=== PATIENT | female | born 1930 | race Caucasian/White ===

== ENCOUNTER 2016-07-08 12:15 | Inpatient (IN) | payer MEDICARE, OTHER ==
--- NOTE | 2016-07-08 13:19 | ED ---
Fall HPI - General Chief Complaint: Fall Stated Complaint: FALL Time Seen by Provider: 07/08/16 12:44 Source: patient, EMS, RN notes reviewed Mode of arrival: EMS - History of Present Illness Initial Comments: Patient is an 85-year-old female presents to the emergency room for evaluation of fall. Patient states this morning she was turning around to grab her hairbrush and lost her balance and fell on her left hip. Patient states that she crawled through her house to get the phone to call EMS. Patient states that she's having constant pain in her left hip. Patient states she feels like it is dislocated. Patient denies previous surgeries on her hip in the past or dislocations. Patient denies numbness or tingling in her toes. Patient denies head trauma, loss of consciousness, nausea, vomiting, neck pain. Patient denies any other injuries besides hip pain. - Related Data Home Medications Medication Instructions Recorded Confirmed Levothyroxine Sodium [Synthroid] 100 mcg PO DAILY 07/22/14 07/08/16 Naproxen Sodium [Aleve] 440 mg PO Q8H PRN 03/07/16 07/08/16 Allergies Allergy/AdvReac Type Severity Reaction Status Date / Time Anesthetics - Bianca Type- Allergy Itching Verified 07/08/16 15:21 Parabens [Anesthetics - Bianca Type] celecoxib [From Celebrex] Allergy Itching Verified 07/08/16 15:21 doxycycline Allergy Rash/Hives Verified 07/08/16 15:21 iron Allergy Itching Verified 07/08/16 15:21 losartan potassium Allergy Rash/Hives Verified 07/08/16 15:21 [From Hyzaar] meperidine HCl [From Demerol] Allergy Anaphylaxis Verified 07/08/16 15:21 metformin HCl Allergy Anaphylaxis Verified 07/08/16 15:21 [From Glucophage] Tetracyclines Allergy Rash/Hives Verified 07/08/16 15:21 Anesthetics - Amide Type AdvReac Rapid Verified 07/08/16 12:23 Heart Rate hydrochlorothiazide AdvReac Nausea & Verified 07/08/16 12:23 [From Hyzaar] Vomiting shellfish derived AdvReac Nausea Verified 07/08/16 12:23 modex AdvReac Nausea & Uncoded 07/08/16 12:23 Vomiting Review of Systems ROS Statement: Those systems with pertinent positive or pertinent negative responses have been documented in the HPI. ROS Other: All systems not noted in ROS Statement are negative. Past Medical History Past Medical History: Thyroid Disorder Additional Past Medical History / Comment(s): anemia, abnormal liver enzymes History of Any Multi-Drug Resistant Organisms: None Reported Past Surgical History: Tonsillectomy Additional Past Surgical History / Comment(s): rectal prolapse repair, breast implants Past Psychological History: No Psychological Hx Reported Smoking Status: Never smoker Past Alcohol Use History: None Reported Past Drug Use History: None Reported - Past Family History Father Family Medical History: Cancer Additional Family Medical History / Comment(s): STOMACH ULCERS AND CANCER Mother Family Medical History: Myocardial Infarction (PA) Additional Family Medical History / Comment(s): SEVERAL PA'S General Exam - General Exam Comments Initial Comments: Sitting in exam room in no acute distress. Limitations: physical limitation General appearance: alert, in no apparent distress Head exam: Present: atraumatic, normocephalic, normal inspection Eye exam: Present: normal appearance ENT exam: Present: normal exam Neck exam: Present: normal inspection Respiratory exam: Present: normal lung sounds bilaterally. Absent: respiratory distress Cardiovascular Exam: Present: regular rate, normal rhythm, normal heart sounds Extremities exam: Present: normal inspection Left Hip exam: Present: tenderness, internal rotation, shortening. Absent: full ROM Upper Leg exam: Present: normal inspection. Absent: tenderness Knee exam: Present: normal inspection. Absent: tenderness Neurovascular tendon exam: Present: no vascular compromise. Absent: pulse deficit (2+ dorsal pedal and posterior tibial pulses), abnormal cap refill ( Capillary refill less than 2 seconds) Gait: unable to bear weight Back exam: Present: normal inspection Neurological exam: Present: alert Psychiatric exam: Present: normal affect, normal mood Skin exam: Present: warm, dry, intact, normal color. Absent: rash Course Vital Signs 07/08/16 07/08/16 12:17 14:34 Temperature 97.0 F L 99.3 F Pulse Rate 92 85 Respiratory 17 18 Rate Blood Pressure 162/65 173/69 O2 Sat by Pulse 100 99 Oximetry Medical Decision Making - Medical Decision Making Patient is an 85-year-old female presents emergency room for evaluation of fall. Left hip x-ray: Subcapital fracture left hip. Patient declined pain medications when she first arrived. After x-rays, patient requested pain medications. Case discussed with Dr. Ivy. Dr. Ivy discussed case with Dr. Escobar who agreed to admit patient. Plan discussed with patient. - Lab Data Result diagrams: 07/08/16 14:10 07/08/16 14:10 Lab Results 07/08/16 07/08/16 07/08/16 Range/Units 12:35 14:10 14:10 WBC 14.7 H (3.8-10.6) k/uL RBC 2.49 L (3.80-5.40) m/uL Hgb 8.8 L (11.4-16.0) gm/dL Hct 27.1 L (34.0-46.0) % MCV 108.6 H (80.0-100.0) fL MCH 35.3 H (25.0-35.0) pg MCHC 32.6 (31.0-37.0) g/dL RDW 22.1 H (11.5-15.5) % Plt Count 386 (150-450) k/uL Neutrophils % (Manual) 89.5 % Band Neutrophils % 1.5 % Lymphocytes % (Manual) 6.0 % Monocytes % (Manual) 2.0 % Metamyelocytes % 0.5 % Myelocytes % 0.5 % Neutrophils # (Manual) 13.4 H (1.3-7.7) k/uL Lymphocytes # (Manual) 0.9 L (1.0-4.8) k/uL Monocytes # (Manual) 0.3 (0-1.0) k/uL Nucleated RBCs 0 (0-0) /100 WBC Toxic Granulation Present Dimorphic RBCs Present Poikilocytosis (manual Present Anisocytosis Moderate Macrocytosis Marked Target Cells Present PT (9.0-12.0) sec INR (<1.1) Sodium 143 (137-145) mmol/L Potassium 4.4 (3.5-5.1) mmol/L Chloride 105 (98-107) mmol/L Carbon Dioxide 26 (22-30) mmol/L Anion Gap 12 mmol/L BUN 23 H (7-17) mg/dL Creatinine 0.90 (0.52-1.04) mg/dL Est GFR (MDRD) Af Amer >60 (>60 ml/min/1.73 sqM) Est GFR (MDRD) Non-Af 60 (>60 ml/min/1.73 sqM) Glucose 101 H (74-99) mg/dL Calcium 9.6 (8.4-10.2) mg/dL Total Bilirubin 1.4 H (0.2-1.3) mg/dL AST 121 H (14-36) U/L ALT 99 H (9-52) U/L Alkaline Phosphatase 75 (38-126) U/L Total Protein 7.3 (6.3-8.2) g/dL Albumin 4.1 (3.5-5.0) g/dL Urine Color Yellow Urine Appearance Clear (Clear) Urine pH 7.0 (5.0-8.0) Ur Specific [place] 1.009 (1.001-1.035) Urine Protein 1+ H (Negative) Urine Glucose (UA) Negative (Negative) Urine Ketones Negative (Negative) Urine Blood Negative (Negative) Urine Nitrate Negative (Negative) Urine Bilirubin Negative (Negative) Urine Urobilinogen <2.0 (<2.0) mg/dL Ur Leukocyte Esterase Negative (Negative) Urine WBC 2 (0-5) /hpf Urine Mucus Rare H (None) /hpf 07/08/ Range/Units 14:10 WBC (3.8-10.6) k/uL RBC (3.80-5.40) m/uL Hgb (11.4-16.0) gm/dL Hct (34.0-46.0) % MCV (80.0-100.0) fL MCH (25.0-35.0) pg MCHC (31.0-37.0) g/dL RDW (11.5-15.5) % Plt Count (150-450) k/uL Neutrophils % (Manual) % Band Neutrophils % % Lymphocytes % (Manual) % Monocytes % (Manual) % Metamyelocytes % % Myelocytes % % Neutrophils # (Manual) (1.3-7.7) k/uL Lymphocytes # (Manual) (1.0-4.8) k/uL Monocytes # (Manual) (0-1.0) k/uL Nucleated RBCs (0-0) /100 WBC Toxic Granulation Dimorphic RBCs Poikilocytosis (manual Anisocytosis Macrocytosis Target Cells PT 11.3 (9.0-12.0) sec INR 1.1 (<1.1) Sodium (137-145) mmol/L Potassium (3.5-5.1) mmol/L Chloride (98-107) mmol/L Carbon Dioxide (22-30) mmol/L Anion Gap mmol/L BUN (7-17) mg/dL Creatinine (0.52-1.04) mg/dL Est GFR (MDRD) Af Amer (>60 ml/min/1.73 sqM) Est GFR (MDRD) Non-Af (>60 ml/min/1.73 sqM) Glucose (74-99) mg/dL Calcium (8.4-10.2) mg/dL Total Bilirubin (0.2-1.3) mg/dL AST (14-36) U/L ALT (9-52) U/L Alkaline Phosphatase (38-126) U/L Total Protein (6.3-8.2) g/dL Albumin (3.5-5.0) g/dL Urine Color Urine Appearance (Clear) Urine pH (5.0-8.0) Ur Specific [place] (1.001-1.035) Urine Protein (Negative) Urine Glucose (UA) (Negative) Urine Ketones (Negative) Urine Blood (Negative) Urine Nitrate (Negative) Urine Bilirubin (Negative) Urine Urobilinogen (<2.0) mg/dL Ur Leukocyte Esterase (Negative) Urine WBC (0-5) /hpf Urine Mucus (None) /hpf - Radiology Data Radiology results: report reviewed, image reviewed Disposition Clinical Impression: Subcapital fracture of hip Disposition: ADMITTED IP TO THIS [facility] Condition: Stable Decision Date: 07/08/16
--- NOTE | 2016-07-08 13:32 | XR ---
EXAMINATION TYPE: XR Hip Complete LT DATE OF EXAM: 07/08/2016 1:28 PM COMPARISON: Pelvis 04/15/2013 HISTORY: Pain, fall TECHNIQUE: 2 views left hip FINDINGS: There is a subcapital fracture. The femoral head articulates with the acetabulum. No additi onal fractures are evident. IMPRESSION: 1. Subcapital fracture left hip
[2016-07-08] MEDS ORDERED: MORPHINE SULFATE 2 MG/ML SYRINGE IVP ONE (14:04)
[2016-07-08] MEDS ORDERED: MORPHINE SULFATE 2 MG/ML SYRINGE IV PRN (14:17)
[2016-07-08] MEDS ORDERED: NALOXONE 0.4 MG/ML 1 ML VIAL IV PRN (14:17)
[2016-07-08 14:32] LABS: INR 1.1 (<1.1); Prothrombin Time 11.3 sec (9.0-12.0)
[2016-07-08 14:36] LABS: ALT 99 U/L (9-52); AST 121 U/L (14-36); Alkaline Phosphatase 75 U/L (38-126); Anion Gap 12 mmol/L; Blood Urea Nitrogen 23 mg/dL (7-17); Calcium 9.6 mg/dL (8.4-10.2); Carbon Dioxide 26 mmol/L (22-30); Chloride 105 mmol/L (98-107); Glucose 101 mg/dL (74-99); Non-African American GFR(MDRD) 60 (>60 ml/min/1.73 sqM); Potassium 4.4 mmol/L (3.5-5.1); Sodium 143 mmol/L (137-145); Total Bilirubin 1.4 mg/dL (0.2-1.3); Total Protein 7.3 g/dL (6.3-8.2)
[2016-07-08] MEDS ORDERED: MORPHINE SULFATE 4 MG/ML SYRINGE IVP STA (14:38)
[2016-07-08 14:42] LABS: Anisocytosis Moderate; CH 36.2; CHCM 33.4; HCT 27.1 % (34.0-46.0); HDW 2.93; HGB 8.8 gm/dL (11.4-16.0); MCH 35.3 pg (25.0-35.0); MCHC 32.6 g/dL (31.0-37.0); MCV 108.6 fL (80.0-100.0); Macrocytosis Marked; Mean Platelet Volume 7.8; RBC 2.49 m/uL (3.80-5.40); RDW 22.1 % (11.5-15.5); WBC 14.7 k/uL (3.8-10.6); WBC (Perox) 15.35
[2016-07-08] MEDS: SODIUM CHLORIDE 0.9% 1,000 ML IV SCH (14:53)
--- NOTE | 2016-07-08 14:55 | XR ---
EXAMINATION TYPE: XR chest 1V DATE OF EXAM: 07/08/2016 2:43 PM COMPARISON: 03/07/2016 INDICATION: Pain TECHNIQUE: Single frontal view of the chest is obtained. FINDINGS: The heart size is normal. The pulmonary vasculature is normal. The lungs are clear. IMPRESSION: 1. No acute pulmonary process.
[2016-07-08 15:04] LABS: Add Differential Manual Differential
[2016-07-08 15:09] LABS: Band Neutrophils % 1.5 %; Metamyelocytes % 0.5 %; Myelocytes % 0.5 %; Nucleated Red Blood Cells 0 /100 WBC (0-0); Total Cells Counted 200
[2016-07-08 15:10] LABS: Appearance,Urine Clear (Clear); Bilirubin,Urine Negative (Negative); Glucose,Urine (UA) Negative (Negative); Ketones,Urine Negative (Negative); Leukocyte Esterase,Urine Negative (Negative); Mucus,Urine Rare /hpf; Nitrite,Urine Negative (Negative); Particle Count 1087; Protein,Urine 1+ (Negative); Specific Gravity,Urine 1.009 (1.001-1.035); UA Billing (MACRO vs. MICRO) MICRO; Urobilinogen,Urine <2.0 mg/dL (<2.0); WBC,Urine 2 /hpf (0-5)
[2016-07-08 15:11] LABS: Target Cells Present; Toxic Granulation Present
[2016-07-08] MEDS: MORPHINE SULFATE 4 MG/ML SYRINGE IVP PRN (15:38)
[2016-07-08] MEDS: ONDANSETRON 4 MG/2 ML VIAL IVP PRN (16:23)
[2016-07-08] MEDS ORDERED: HYDROcodone/APAP 5-325MG 1 EACH TAB PO PRN (17:51)
--- NOTE | 2016-07-08 22:20 | PN ---
DATE OF SERVICE: 07/08/2016 Katrina is a very pleasant 85-year-old female who earlier today slipped on a floor in her house and fell onto her left hip. She had immediate left hip pain. She was brought via ambulance to [facility]'s emergency department. Workup including x-rays revealed a left displaced subcapital femoral neck fracture. I was then notified by the emergency department. She was admitted to me, and I saw her this evening on the floor. She was resting comfortably in bed when I saw her. She had no complaints of pain other than the left hip. She does state to me that she lives alone. She is an independent ambulator. She feels that she is quite active for her age. Medical history of hypertension and type 2 diabetes. PHYSICAL EXAMINATION: She is resting comfortably in no acute distress. Her T-max is 98.3. Blood pressure is elevated at 159/71. Her pulse rate is 83. She is saturating 100% on room air. LABORATORIES: Her white count is 14.7, hemoglobin 8.8, platelets 386. Her INR is 1.1. Her urinalysis is negative for urinary tract infection. PHYSICAL EXAMINATION: She has no pain with palpation and range of motion of all long bones and joints with the exception of the left hip. The left hip is flexed and externally rotated. Her skin on the outside of the left hip is intact. There is no evidence of bruising. She has minimal swelling in the thigh. She has no pain with palpation of the mid aspect and distal aspect of her femur. No pain with palpation around the knee. She has no pain distally in the tibia, fibula, foot or ankle. She has intact flexion and extension, inversion and eversion of the left ankle. She has intact flexion and extension of all of her toes. She has intact lateral, medial, plantar and first dorsal web space sensation in the left foot. She has a palpable posterior tibial pulse and brisk capillary refill in all digits. X-RAYS: View of the pelvis as well as an AP lateral view of the left hip show a displaced subcapital femoral neck fracture. IMPRESSION: Left subcapital femoral neck fracture. RECOMMENDATIONS: I had a long discussion with Katrina. She is an independent ambulator. Recommendation was to proceed forward with hemiarthroplasty of her left hip for definitive fixation of her left femoral neck fracture. The risks of the procedure were discussed with her in detail. These risks include but are not limited to risk of infection, nerve damage, bleeding, pain, and a small risk of deep vein thrombosis which could lead to fatal pulmonary embolism. Further risks that I discussed with here were the possibility for periprosthetic fracture and the possibility for postoperative instability in the hip. All of her questions with regards to the procedure were answered to her satisfaction and appropriate informed consent was obtained. We will have the medicine service see Katrina to definitively clear her for operative intervention. We will plan to proceed forward if she is cleared tomorrow morning for left hip hemiarthroplasty. Katrina will be n.p.o. after midnight tonight.
[2016-07-08] MEDS ORDERED: ALPRAZolam 0.25 MG TAB PO PRN (22:37)
[2016-07-08 23:38] LABS: Amorphous Sediment,Urine Rare /hpf; Appearance,Urine Clear (Clear); Bacteria,Urine Rare /hpf; Bilirubin,Urine Negative (Negative); Glucose,Urine (UA) Negative (Negative); Ketones,Urine Negative (Negative); Leukocyte Esterase,Urine Moderate (Negative); Nitrite,Urine Negative (Negative); Particle Count 1299; Protein,Urine Negative (Negative); RBC,Urine 2 /hpf (0-5); Specific Gravity,Urine 1.014 (1.001-1.035); UA Billing (MACRO vs. MICRO) MICRO; WBC,Urine 27 /hpf (0-5)
[2016-07-09] MEDS: MORPHINE SULFATE 4 MG/ML SYRINGE IVP PRN ×2 (03:41→06:40)
[2016-07-09 07:23] LABS: Anisocytosis Moderate; Basophils # (A) 0.1 k/uL (0-0.2); Basophils % (A) 1 %; CH 35.5; CHCM 32.3; Eosinophils # (A) 0.6 k/uL (0-0.7); Eosinophils % (A) 6 %; HCT 22.6 % (34.0-46.0); Hypochromasia Slight; Luc # (Auto) 0.39; Luc % (Auto) 4; Lymphocytes # (A) 2.7 k/uL (1.0-4.8); Lymphocytes % (A) 26 %; MCH 35.7 pg (25.0-35.0); MCHC 32.4 g/dL (31.0-37.0); MCV 110.2 fL (80.0-100.0); Macrocytosis Marked; Mean Platelet Volume 7.6; Monocytes # (A) 0.6 k/uL (0-1.0); Monocytes % (A) 6 %; Neutrophils % (A) 58 %; RBC 2.05 m/uL (3.80-5.40); RDW 22.6 % (11.5-15.5); WBC 10.4 k/uL (3.8-10.6); WBC (Perox) 10.96
[2016-07-09 07:28] LABS: HGB 7.3 gm/dL (11.4-16.0)
[2016-07-09 07:59] LABS: Total Bilirubin 1.1 mg/dL (0.2-1.3); Total Protein 6.3 g/dL (6.3-8.2)
[2016-07-09] MEDS ORDERED: ceFAZolin 2 GM in SODIUM CHLORIDE 0.9% 100 ML IVPB SCH (08:00)
[2016-07-09] MEDS ORDERED: PROPOFOL 10 MG/ML 20 ML VIAL IV ONE (09:51)
[2016-07-09] MEDS ORDERED: ceFAZolin 1,000 MG VIAL ONE (09:51)
[2016-07-09] MEDS ORDERED: SODIUM CHLORIDE 0.9% 1,000 ML BAG ONE (09:51)
[2016-07-09] MEDS ORDERED: SODIUM CHLORIDE 0.9% 100 ML BAG ONE (09:51)
[2016-07-09] MEDS ORDERED: IV FLUID CONTINUATION 300 ML IV ONE (09:51)
[2016-07-09] MEDS ORDERED: ROCURONIUM BROMIDE 10 MG/ML 10 ML VIAL IV ONE (09:51)
[2016-07-09] MEDS ORDERED: MIDAZOLAM 2 MG/2 ML VIAL ONE (09:51)
[2016-07-09] MEDS ORDERED: NEOSTIGMINE 1 MG/ML 10 ML VIAL ONE (09:51)
[2016-07-09] MEDS ORDERED: GLYCOPYRROLATE 0.2 MG/ML 2 ML VIAL ONE (09:51)
[2016-07-09] MEDS ORDERED: ePHEDrine 50 MG/ML 1 ML AMP ONE (09:51)
[2016-07-09] MEDS ORDERED: SUCCINYLCHOLINE CHLORIDE 100 MG/5 ML SYR IV ONE (09:51)
[2016-07-09] MEDS ORDERED: SODIUM CHLORIDE 0.9% 100 ML with ceFAZolin 2,000 MG IV ONE ×2 (09:56)
[2016-07-09] MEDS ORDERED: SODIUM CHLORIDE 0.9% 1,000 ML IV ONE (10:25)
[2016-07-09] MEDS ORDERED: ceFAZolin 1,000 MG in SODIUM CHLORIDE 0.9% 1,000 ML IRRIGATION ONE (10:33)
--- NOTE | 2016-07-09 11:13 | CONS ---
DATE OF CONSULTATION: 07/08/2016 REASON FOR CONSULTATION: Advice regarding hypothyroidism and other multiple medical issues requested by Dr. Escobar. HISTORY OF PRESENT ILLNESS: This 85-year-old woman with a past history of hypothyroidism, history of anemia, abnormal liver enzymes, rectal prolapse, being followed by no primary care physician in the outpatient setting apparently had twisted her leg and the patient subsequently suffered a left subcapital femoral neck fracture. Patient admitted for further evaluation and treatment. There is no history of any fever, rigors or chills. No history of any headache, loss of consciousness. No history of chest pain, palpitations. On admission, the patient was found to have hemoglobin of 8.8 and MCV 108.6. The patient had long-standing anemia. Multiple workups were done without any definitive results, according to her. Previous exercise capacity appears to be excellent. PAST MEDICAL HISTORY: History of anemia, long-standing; abnormal liver enzymes, hypothyroidism. Medications prior to admission include: 1. Naprosyn 40 mg q.8 p.r.n. 2. Synthroid 100 mcg p.o. daily. ALLERGIES ARE ANESTHETICS CELEBREX, DOXYCYCLINE, IRON, LOSARTAN, DEMEROL, METFORMIN, TETRACYCLINE, HYZAAR, SHELLFISH, FAMILY HISTORY: History of stomach cancer and ulcers. SOCIAL HISTORY: No history of smoking. No history of alcohol. REVIEW OF SYSTEMS: ENT: No diminished hearing, diminished vision. CARDIOVASCULAR: No angina, palpitations. RESPIRATORY: No cough GI: No nausea. : No dysuria. NERVOUS: No numbness or weakness. ALLERGY/IMMUNOLOGY: No asthma or hay fever. MUSCULOSKELETAL: As mentioned earlier. HEMATOLOGY/ONCOLOGY: As mentioned earlier. ENDOCRINE: No history of diabetes, hypothyroidism. CONSTITUTIONAL: As mentioned earlier. DERMATOLOGY: Negative. RHEUMATOLOGY: As mentioned earlier. PSYCHIATRY: Negative. PHYSICAL EXAM: Alert and oriented x3. Pulse 83, blood pressure 159/71, respirations 16, temperature 98.3, pulse ox 100% on room air. HEENT: Conjunctivae pale. Oral mucosa moist. NECK: No jugular venous distention. No carotid bruits. No lymph node enlargement. No thyroid enlargement. CARDIOVASCULAR: S1 and S2 muffled. No S3. No S4. No murmur. RESPIRATORY: Breath sounds diminished in the bases. No rhonchi. No crackles. Abdomen is soft, nontender. No mass palpable. No hepatosplenomegaly. No ascites. EXTREMITIES: Legs, status post left hip fracture. NERVOUS SYSTEM: Higher functions as mentioned. Moves all 4 limbs. No focal motor or sensory deficits. LYMPHATIC: No lymph nodes palpable in neck, axillae or groin. SKIN: No ulcers, rash or bleeding. Labs at this time show WBC 14.6, hemoglobin is 8.9, MCV 108. Other labs are noted. ASSESSMENT: 1. Status post left subcapital hip fracture. 2. Anemia, microcytic, possibly nutritional. 3. Increased WBC. 4. Increased total bilirubin. 5. Increased AST, ALT, mild hepatitis. 6. Increased glucose. 7. History of long-standing anemia. 8. History of rectal prolapse. 9. History of breast implants. 10. FULL CODE. RECOMMENDATIONS AND DISCUSSION: In this 85-year-old woman who presented with multiple complex medical issues, we will monitor the patient closely. Continue the current continue with the current medication. Continue with symptomatic treatment. Otherwise, at this time I recommend an EKG and if the EKG is normal, the patient will be cleared for surgery. The patient has anemia, which is long-standing. Will continue to monitor. Recommend to continue to monitor on a daily basis after surgery. If the hemoglobin is low, could be transfused. The patient is keen on taking any iron tablets at this time. Other than that, we will closely monitor the patient with you and repeat LFTs are also being requested. Avoid Tylenol products, continue with levothyroxine and follow the patient closely. The patient will be asked to follow with a primary physician also in the outpatient setting. Thank you, Dr. Escobar, for allowing us to participate in this patient's care. GEOFFREY
[2016-07-09] MEDS ORDERED: DIAZEPAM 5 MG TAB PO PRN (11:27)
[2016-07-09] MEDS ORDERED: HYDROcodone/APAP 7.5-325MG 1 EACH TAB PO PRN (11:27)
[2016-07-09] MEDS ORDERED: hydrOXYzine PAMOATE 25 MG CAP PO PRN (11:27)
[2016-07-09] MEDS ORDERED: NALOXONE 0.4 MG/ML 1 ML VIAL IV PRN (11:27)
[2016-07-09] MEDS ORDERED: HYDROmorphone 1 MG/ML 1 ML SYRINGE IVP PRN ×3 (11:27)
[2016-07-09] MEDS ORDERED: MAGNESIUM HYDROXIDE 2,400 MG/10 ML CUP PO PRN (11:27)
[2016-07-09] MEDS: MORPHINE SULFATE 4 MG/ML SYRINGE IVP ONE ×2 (11:47→11:52)
--- NOTE | 2016-07-09 12:28 | XR ---
EXAMINATION TYPE: XR Hip Limited LT DATE OF EXAM: 07/09/2016 11:52 AM CLINICAL HISTORY: Left hip fracture. TECHNIQUE: Single AP portable view of left hip is obtained immediately postoperatively. COMPARISON: Left hip x-ray from yesterday FINDINGS: Current exam is slightly suboptimal due to overlying hand. [place] osseous structures are so mewhat demineralized. Metallic hardware from total left hip arthroplasty is seen and appears satisfac tory in alignment and position. IMPRESSION: Metallic hardware from left hip arthroplasty is satisfactory in position.
[2016-07-09] MEDS: MULTIVITAMINS, THERA 1 EACH TAB PO SCH (12:37)
[2016-07-09] MEDS ORDERED: LEVOFLOXACIN 500MG-D5W PMX 500 MG in DEXTROSE/WATER 1 100ML.BAG IVPB SCH (13:00)
[2016-07-09] MEDS: ONDANSETRON 4 MG/2 ML VIAL IVP PRN (13:30)
[2016-07-09] MEDS: PANTOPRAZOLE 40 MG TABLET PO SCH (13:43)
[2016-07-09] MEDS: LEVOTHYROXINE 100 MCG TAB PO SCH (13:43)
[2016-07-09] MEDS: SODIUM CHLORIDE 0.9% 1,000 ML IV SCH ×2 (17:03→17:45)
[2016-07-09] MEDS ORDERED: WARFARIN 2.5 MG TAB PO ONE (18:00)
[2016-07-09] MEDS: ceFAZolin 2 GM in SODIUM CHLORIDE 0.9% 100 ML IVPB SCH (18:10)
--- NOTE | 2016-07-09 20:44 | PN ---
DATE OF SERVICE: 07/09/2016 This 85 -year-old woman who was admitted with hip fracture also underwent left hemiarthroplasty of the hip by Dr. Escobar. The patient also had anemia. Hemoglobin present on admission was 8.8. Currently 7.8. Patient being transfused two units, MCV is elevated at this time. The patient's creatinine 1.1 and the patient appears to be dehydrated. The patient is mildly confused. The patient being closely monitored at this time. PAST MEDICAL HISTORY: Reviewed. Review of systems could not be taken. The patient is slightly sedated. The current medications are reviewed and include: 1. [place] 5 mg q.4 p.r.n. and 7.5 mg. 2. Xanax 0.25 t.i.d. 3. Cefazolin 2 grams IV q.8. 4. Dilaudid. 5. Vistaril 25 mg q.4 p.r.n. 6. Levaquin 500 mg q.24h. 7. Synthroid 100 mcg p.o. daily. 8. Milk of Magnesia. 9. Melatonin 3 mg at bedtime. 10. Protonix. 11. Multivitamins. 12. Narcan. 13. Zofran. 14. Protonix. 15. Restoril. 16. Ultram. 17. Coumadin. PHYSICAL EXAMINATION: The patient is alert and oriented times 3. Pulse 84, blood pressure 125/50, respirations 20, temperature normal, pulse ox 93% on room air. HEENT: Conjunctivae normal. Oral mucosa moist. NECK: No jugular venous distention. No carotid bruit. No lymph node enlargement. CARDIOVASCULAR SYSTEM: S1, S2 muffled. RESPIRATORY: Diminished at the bases. A few scattered rhonchi. ABDOMEN: Soft. Nontender. Legs: Status post surgery. CENTRAL NERVOUS SYSTEM: No focal deficits. Labs at this time. WBC 10.8, hemoglobin 7.3, MCV 110.2, creatinine is 1.10. ASSESSMENT: 1. Left subcapital hip fracture, status post left hip hemiarthroplasty. 2. Anemia, microcytic, possibly nutritional, status post transfusion, present on admission and transfusion. 3. Increased WBC. 4. Increased total bilirubin and increased AST, ALT, mild hepatitis of undetermined etiology. 5. Increased glucose. 6. History of long-standing anemia with multiple work-ups. 7. History of rectal prolapse. 8. History of breast implants. 9. FULL CODE. RECOMMENDATIONS AND DISCUSSION: In this 84-year-old woman who presented with multiple complex medical issues, we will monitor the patient closely, continue the current medications. Continue symptomatic treatment. Continue with medications and monitor hemoglobin closely. Empiric antibiotics. Otherwise, supplement vitamins. DVT prophylaxis. Incentive spirometry. Further recommendations to follow. I would also recommend close follow-up in the outpatient setting. GEOFFREY
[2016-07-09] MEDS: MELATONIN 3 MG TABLET PO SCH (21:31)
[2016-07-09] MEDS: SENNOSIDES-DOCUSATE SODIUM 1 EACH TAB PO SCH (21:31)
[2016-07-10] MEDS: ceFAZolin 2 GM in SODIUM CHLORIDE 0.9% 100 ML IVPB SCH (00:09)
[2016-07-10] MEDS: SODIUM CHLORIDE 0.9% 1,000 ML IV SCH ×3 (00:11→15:40)
[2016-07-10] MEDS: HYDROcodone/APAP 7.5-325MG 1 EACH TAB PO PRN (05:50)
[2016-07-10] MEDS: LEVOTHYROXINE 100 MCG TAB PO SCH (05:51)
[2016-07-10 07:38] LABS: ALT 63 U/L (9-52); AST 70 U/L (14-36); Alkaline Phosphatase 47 U/L (38-126); Anion Gap 9 mmol/L; Blood Urea Nitrogen 19 mg/dL (7-17); Calcium 7.9 mg/dL (8.4-10.2); Carbon Dioxide 20 mmol/L (22-30); Chloride 106 mmol/L (98-107); Glucose 145 mg/dL (74-99); Non-African American GFR(MDRD) 60 (>60 ml/min/1.73 sqM); Potassium 4.7 mmol/L (3.5-5.1); Sodium 135 mmol/L (137-145); Total Bilirubin 1.1 mg/dL (0.2-1.3); Total Protein 5.5 g/dL (6.3-8.2)
[2016-07-10 08:17] LABS: Anisocytosis Moderate; Basophils # (A) 0.1 k/uL (0-0.2); Basophils % (A) 1 %; CH 33.6; CHCM 32.9; Eosinophils # (A) 0.4 k/uL (0-0.7); Eosinophils % (A) 4 %; HCT 24.8 % (34.0-46.0); HDW 3.05; HGB 8.3 gm/dL (11.4-16.0); Luc # (Auto) 0.29; Luc % (Auto) 2; Lymphocytes # (A) 1.5 k/uL (1.0-4.8); Lymphocytes % (A) 13 %; MCH 34.5 pg (25.0-35.0); MCHC 33.5 g/dL (31.0-37.0); Macrocytosis Marked; Monocytes # (A) 0.8 k/uL (0-1.0); Monocytes % (A) 6 %; Neutrophils # (A) 9.2 k/uL (1.3-7.7); Neutrophils % (A) 75 %; RDW 22.8 % (11.5-15.5); WBC 12.3 k/uL (3.8-10.6); WBC (Perox) 12.85
[2016-07-10 08:52] LABS: Manual Review Performed
[2016-07-10 08:53] LABS: Toxic Granulation Present
[2016-07-10] MEDS: PANTOPRAZOLE 40 MG TABLET PO SCH (10:12)
--- NOTE | 2016-07-10 10:54 | P.PN ---
Subjective Principal diagnosis: Left hip fracture Patient is postop day #1 from left hip hemiarthroplasty performed by Dr. Escobar for a left femoral neck fracture. She is seen at bedside this morning. She has expected postoperative pain at the left hip. She denies new complaints. She is denying numbness or tingling throughout the lower extremity. She denies calf pain. Review of systems is negative for fever, chills, chest pain, shortness of breath, nausea, vomiting, dizziness, headaches, slurred speech or other. Objective - Vital Signs Vital signs: Vital Signs Temp 98.2 F 07/10/16 08:00 Pulse 96 07/10/16 08:00 Resp 16 07/10/16 08:00 BP 129/60 07/10/16 08:00 Pulse Ox 91 L 07/10/16 08:00 Intake & Output 07/09/16 07/10/16 07/10/16 18:59 06:59 18:59 Intake Total 2081 1140 360 Output Total 575 400 Balance 1506 740 360 Intake: IV 1361 Sodium Chloride 0.9% 1, 60 000 ml @ 20 mls/hr IV . Q24H [facility] Rx#:[id number] Intake, IV Titration 300 Amount Sodium Chloride 0.9% 1, 300 000 ml @ 75 mls/hr IV . [id number] [facility] Rx#:[id number] Oral 100 840 360 Blood Product 620 Rc As-1 Unit 310 [id number] Rc As-1 Unit 310 [id number] Output: Urine 325 400 Estimated Blood Loss 250 Other: Voiding Method Indwelling Catheter Indwelling Catheter Indwelling Catheter - Exam Inspection of the left lower extremity shows a benign surgical wound. There is no active bleeding, dehiscence or drainage. Neurovascular status intact throughout the lower extremity. She has active plantar flexion and dorsiflexion. Sensation to light touch is intact throughout the lower extremity. Calf is soft and nontender. 2+ dorsalis pedis pulses and less than 2 second cap refill is present. - Constitutional General appearance: Present: no acute distress - Psychiatric Psychiatric: Present: A&O x's 3, appropriate affect, intact judgment & insight - Labs CBC & Chem 7: 07/10/16 06:45 07/10/16 06:45 Labs: Abnormal Lab Results - Last 24 Hours (Table) 07/10/16 07/10/16 Range/Units 06:45 06:45 WBC 12.3 H (3.8-10.6) k/uL RBC 2.40 L (3.80-5.40) m/uL Hgb 8.3 L (11.4-16.0) gm/dL Hct 24.8 L (34.0-46.0) % MCV 103.0 H D (80.0-100.0) fL RDW 22.8 H (11.5-15.5) % Neutrophils # 9.2 H (1.3-7.7) k/uL Sodium 135 L (137-145) mmol/L Carbon Dioxide 20 L (22-30) mmol/L BUN 19 H (7-17) mg/dL Glucose 145 H (74-99) mg/dL Calcium 7.9 L (8.4-10.2) mg/dL AST 70 H (14-36) U/L ALT 63 H (9-52) U/L Total Protein 5.5 L (6.3-8.2) g/dL Albumin 2.8 L (3.5-5.0) g/dL Microbiology - Last 24 Hours (Table) 07/08/16 23:21 Urine Culture - Preliminary Urine,Clean Catch Assessment and Plan (1) Subcapital fracture of hip Narrative/Plan: She will continue with routine postop orthopedic protocol including pain management, wound care, physical therapy, DVT prophylaxis and medical management. Expect that she'll transfer to an extended care facility in the next 1-2 days. Status: Acute Time with Patient: Less than 30
[2016-07-10] MEDS: MULTIVITAMINS, THERA 1 EACH TAB PO SCH (11:09)
[2016-07-10] MEDS: FOLIC ACID 1 MG TAB PO SCH (11:09)
[2016-07-10] MEDS: THIAMINE 100 MG TAB PO SCH (11:09)
--- NOTE | 2016-07-10 11:10 | OP ---
DATE OF SERVICE: SURGEON: ANTHONY PATRICK MD [employer]OM[employer] COACH: BRENDA WU. PREOPERATIVE DIAGNOSIS: Left displaced subcapital femoral neck fracture. POSTOPERATIVE DIAGNOSIS: Left displaced subcapital femoral neck fracture. OPERATION: Left hip hemiarthroplasty. ANESTHESIA: Spinal with sedation. ESTIMATED BLOOD LOSS: 250 mL. SPECIMENS REMOVED: COMPLICATIONS: None apparent. DRAINS: None. DISPOSITION: Postanesthesia care unit. OPERATIVE FINDINGS: INDICATIONS: Katrina is a very pleasant 85-year-old female who slipped yesterday in her house and fell on her left hip. She was brought via ambulance to [facility]. Work-up including x-rays revealed a left intracapsular femoral neck fracture. I was notified. She was admitted to my service. She was then evaluated by the medicine service on the floor. She was cleared for surgery. The risks of the procedure were discussed with her and her son in detail. These risks include, but are not limited to risk of infection, nerve damage, bleeding, pain, and a small risk of deep vein thrombosis, which could lead to fatal pulmonary embolism. Further risks include periprosthetic fracture, and a possibility for postoperative instability in the hip. All of her and her son's questions with regards to risks of the procedure were answered to their satisfaction and appropriate informed consent was obtained. DESCRIPTION OF THE PROCEDURE: The patient was identified in the preoperative holding area. Surgical site was marked by both patient and myself. She was given 2 grams of Ancef IV for prophylactic purposes. She was then transferred to the operative suite, where she was placed supine on the operating room table. General anesthetic was then administered and dosed by the anesthesia department without apparent complication. She was then placed into the right lateral decubitus position, well-padded in preparation for surgery. A well-padded axillary roll was also placed. Her legs were appropriately padded as well. The patient's left lower extremity was then prepped and draped in the usual sterile fashion. Standard surgical pause was then undertaken to ensure that we were operating on the correct site and that appropriate preoperative antibiotics had been given. All staff in the room were in agreement and we proceeded. The outlines of the greater trochanter and the proximal femur were marked with surgical pen. A planned 10 to 12 cm incision centered over the tip of the greater trochanter in line with the shaft of the femur was then marked with a surgical pen. Incision was then made with 10 blade scalpel. Dissection was carried down sharply to tensor fascia. The tensor fascia was then incised in line with the incision. This exposed the underlying trochanteric bursa. Trochanteric bursa was sharply excised. The [place]he between the anterior one third and the middle third of the gluteus medius and minimus was identified. I then utilizing electrocautery, the [place] between the anterior one third and middle two thirds was then incised. I then did a standard anterolateral approach to the hip. This was Hard[place] type approach. I then delivered the femoral neck out of the wound. I then utilized the guide and made a fresh femoral neck cut. This was done with reciprocating saw. The [place] femoral head was then removed with corkscrew. The acetabulum was then inspected. The cartilage was in good condition. There were no loose bodies noted within the acetabulum. I then placed a trial 45 head in the acetabulum. It had an excellent fit. The proximal femur was then delivered out of the wound. The box truck owner operator was used to enter the proximal femur. Starting reamer was then placed down the shaft of the femur. I then incrementally, reamed the proximal femur up to a 9 mm reamer, which is where I encountered good chatter. I then proceeded with broaching. I started with a size 7 broach and increased up to a size 9 broach. This had an excellent fit and fill of the proximal femur. The calcar reamer was then utilized. I then proceeded with trialing. I started with a -3 neck and a 45 head. The hip was carefully reduced. She was stable throughout a full range of motion. The legs were approximately equal. The leg lengths were approximately equal. There was minimal shuck. The hip was then redislocated. I made a decision to go forward with a 9 stem, -3 neck and 45 head. The wound was then thoroughly irrigated with sterile saline solution via pulse lavage. I had the food service sales representatives open a Biomet size 9 Bi-Metric collared hip stem, and -3 neck with a 45 monopolar head. The stem was then impacted in approximately 10 to 15 degrees of anteversion. The stem had excellent fit and was very stable. The -3 neck was then placed onto the 45 monopolar head. This was then tapped onto the [place] taper of the hip stem. The hip was then carefully reduced. Again it was stable throughout a full range of motion and there was minimal shuck and the leg lengths were approximately equal. At this point in time, I proceeded with closure. The wound was again thoroughly irrigated with sterile saline solution with antibiotic added. The hip capsule was closed with 0-Vicryl interrupted suture. The gluteus medius and minimus were repaired back to the greater trochanter utilizing #5 Ethibond transosseous suture. The raphe between the anterior one third and the middle two thirds of the gluteus medius was reapproximated with 0-Vicryl suture. The tensor fascia was then closed with running #2 Quill suture. The subcutaneous tissue was closed with 2-0 Vicryl interrupted suture and the skin was closed with running 3-0 Quill suture. Dermabond was then applied to the incision. The hip abductor pillow was also applied at this time. All sponge and needle counts were deemed correct prior to closure. The patient tolerated the procedure without apparent complication. She was transferred to recovery room in stable condition.
[2016-07-10] MEDS: LEVOFLOXACIN 250MG-D5W PMX 250 MG in DEXTROSE/WATER 1 50ML.BAG IVPB SCH (12:53)
[2016-07-10] MEDS: traMADol 50 MG TAB PO PRN (14:00)
[2016-07-10 14:29] LABS: INR 1.3 (<1.1); Prothrombin Time 12.5 sec (9.0-12.0)
[2016-07-10] MEDS: ONDANSETRON 4 MG/2 ML VIAL IVP PRN (16:21)
[2016-07-10] MEDS ORDERED: WARFARIN 5 MG TAB PO ONE (18:00)
[2016-07-10] MEDS: MELATONIN 3 MG TABLET PO SCH (21:32)
[2016-07-10] MEDS: SENNOSIDES-DOCUSATE SODIUM 1 EACH TAB PO SCH (21:32)
[2016-07-10] MEDS ORDERED: TEMAZEPAM 15 MG CAP PO PRN (22:00)
[2016-07-11] MEDS: ONDANSETRON 4 MG/2 ML VIAL IVP PRN (04:28)
[2016-07-11] MEDS: traMADol 50 MG TAB PO PRN (04:28)
[2016-07-11] MEDS: LEVOTHYROXINE 100 MCG TAB PO SCH (06:10)
[2016-07-11 07:45] LABS: INR 1.3 (<1.1); Prothrombin Time 12.9 sec (9.0-12.0)
[2016-07-11 07:55] LABS: Anisocytosis Moderate; Basophils # (A) 0.1 k/uL (0-0.2); Basophils % (A) 1 %; CH 33.3; CHCM 31.3; Eosinophils # (A) 0.1 k/uL (0-0.7); Eosinophils % (A) 1 %; HCT 23.8 % (34.0-46.0); HDW 2.73; HGB 7.6 gm/dL (11.4-16.0); Hypochromasia Slight; Luc # (Auto) 0.44; Luc % (Auto) 4; Lymphocytes # (A) 1.9 k/uL (1.0-4.8); Lymphocytes % (A) 17 %; MCH 34.3 pg (25.0-35.0); MCV 107.1 fL (80.0-100.0); Macrocytosis Marked; Mean Platelet Volume 8.1; Monocytes # (A) 0.7 k/uL (0-1.0); Monocytes % (A) 6 %; Neutrophils # (A) 8.1 k/uL (1.3-7.7); Neutrophils % (A) 72 %; RBC 2.22 m/uL (3.80-5.40); WBC 11.2 k/uL (3.8-10.6); WBC (Perox) 11.77
[2016-07-11 08:06] LABS: ALT 60 U/L (9-52); AST 81 U/L (14-36); Alkaline Phosphatase 48 U/L (38-126); Anion Gap 12 mmol/L; Blood Urea Nitrogen 23 mg/dL (7-17); Calcium 8.4 mg/dL (8.4-10.2); Carbon Dioxide 19 mmol/L (22-30); Chloride 105 mmol/L (98-107); Glucose 130 mg/dL (74-99); Non-African American GFR(MDRD) 54 (>60 ml/min/1.73 sqM); Potassium 4.7 mmol/L (3.5-5.1); Sodium 136 mmol/L (137-145); Total Bilirubin 1.6 mg/dL (0.2-1.3); Total Protein 5.9 g/dL (6.3-8.2)
--- NOTE | 2016-07-11 08:25 | XR ---
EXAMINATION TYPE: XR chest 1V portable DATE OF EXAM: 07/11/2016 8:18 AM COMPARISON: 07/08/2016 HISTORY: Fever TECHNIQUE: Single frontal view of the chest is obtained. FINDINGS: There is no focal air space opacity, pleural effusion, or pneumothorax seen. The cardiac silhouette size is within normal limits. The osseous structures are intact. Suggests COPD. Arthropa thy of the shoulders noted. Degenerative change of the spine. IMPRESSION: No acute process.
[2016-07-11] MEDS: SODIUM CHLORIDE 0.9% 1,000 ML IV SCH ×2 (09:11→16:23)
[2016-07-11] MEDS: PANTOPRAZOLE 40 MG TABLET PO SCH ×2 (09:12→10:09)
--- NOTE | 2016-07-11 09:46 | PN ---
DATE OF SERVICE 07/10/2016 This 85-year-old woman was admitted after a hip fracture, underwent a hemiarthroplasty. The patient is being closely monitored. The patient had multiple abnormal labs. No chest pain. No palpitation. The patient had mild fever. On exam much more alert today.. Pulse is 96, blood pressure 111/56, respirations 16, temperature 98.6, pulse ox 94% and room air. HEENT: Conjunctivae normal. NECK: No JVD. CARDIAC: S1, S2 muffled. RESPIRATORY: Breath sounds diminished at the bases. A few scattered rhonchi. No crackles. ABDOMEN: Soft. Nontender. LEGS: Status post surgery. No swelling. NERVOUS SYSTEM: No focal deficits. LABS: WBC, 12, hemoglobin is 8.3. Otherwise, LFTs are noted. PAST MEDICAL HISTORY: Reviewed. REVIEW OF SYSTEMS: CARDIOVASCULAR: No angina or palpitations. GASTROINTESTINAL: No nausea, vomiting, or diarrhea. GENITOURINARY: No dysuria. NERVOUS: No numbness or weakness. CURRENT MEDICATIONS: 1. [place] 5 mg. 2. Xanax 0.25 3. Folic acid 1 mg per day. 4. Dilaudid. 5. Vistaril. 6. Levaquin 250 mg IV daily. 7. Synthroid. 8. Milk of magnesia. 9. Multivitamin. 10. Narcan. 11. Zofran. 12. Protonix. 13. Ultram. ASSESSMENT: 1. Status post left subcapital fracture and left hip arthroplasty. 2. Fever for evaluation, possible to acute urinary tract infection, present on admission. 3. Anemia, microcytic, possibly nutritional status, present on admission and dilution. 4. Increased WBC. 5. Increased total bilirubin. 6. Increased AST, ALT, mild hepatitis of undetermined etiology, present on admission. 7. Increased glucose. 8. History of long-standing anemia with multiple work-ups. 9. Cervical prolapse. 10. History of breast implants. 11. FULL CODE. RECOMMENDATIONS AND DISCUSSION: Recommend to continue with the current medication, continue to monitor, continue symptomatic treatment. Continue with incentive spirometry. Continue with Levaquin. I would also recommend cultures and I would also recommend resume DVT prophylaxis. Repeat labs. Closely follow closely with orthopedic surgery. Further recommendations to follow.
[2016-07-11 10:36] LABS: Large Platelets Present; Manual Review Performed; Toxic Granulation Present
--- NOTE | 2016-07-11 11:28 | P.PN ---
Subjective Principal diagnosis: Left hip fracture Patient is postop day #2 from left hip hemiarthroplasty performed by Dr. Escobar for a left femoral neck fracture. She is seen at bedside this morning. She has expected postoperative pain at the left hip but improved. She denies new complaints. She is denying numbness or tingling throughout the lower extremity. She denies calf pain. Review of systems is negative for fever, chills, chest pain, shortness of breath, nausea, vomiting, dizziness, headaches , slurred speech or other. Objective - Vital Signs Vital signs: Vital Signs Temp 98.4 F 07/11/16 07:24 Pulse 86 07/11/16 07:24 Resp 16 07/11/16 07:24 BP 111/51 07/11/16 07:24 Pulse Ox 93 L 07/11/16 07:24 Intake & Output 07/10/16 07/11/16 07/11/16 18:59 06:59 18:59 Intake Total 1340 360 Output Total 800 575 Balance 540 -575 360 Intake: IV 500 Sodium Chloride 0.9% 1, 500 000 ml @ 20 mls/hr IV . Q24H [facility] Rx#:[id number] Oral 840 360 Output: Urine 800 575 Uretheral ([place]) 400 Other: Voiding Method Indwelling Catheter Bedpan # Voids 1 - Exam Inspection of the left lower extremity shows a benign surgical wound. There is no active bleeding, dehiscence or drainage. Neurovascular status intact throughout the lower extremity. She has active plantar flexion and dorsiflexion. Sensation to light touch is intact throughout the lower extremity. Calf is soft and nontender. 2+ dorsalis pedis pulses and less than 2 second cap refill is present. - Constitutional General appearance: Present: no acute distress - Psychiatric Psychiatric: Present: A&O x's 3, appropriate affect, intact judgment & insight - Labs CBC & Chem 7: 07/11/16 06:31 07/11/16 06:31 Labs: Abnormal Lab Results - Last 24 Hours (Table) 07/10/16 07/11/16 07/11/16 Range/Units 14:09 06:31 06:31 WBC 11.2 H (3.8-10.6) k/uL RBC 2.22 L (3.80-5.40) m/uL Hgb 7.6 L (11.4-16.0) gm/dL Hct 23.8 L (34.0-46.0) % MCV 107.1 H (80.0-100.0) fL RDW 22.0 H (11.5-15.5) % Neutrophils # 8.1 H (1.3-7.7) k/uL PT 12.5 H (9.0-12.0) sec Sodium 136 L (137-145) mmol/L Carbon Dioxide 19 L (22-30) mmol/L BUN 23 H (7-17) mg/dL Glucose 130 H (74-99) mg/dL Total Bilirubin 1.6 H (0.2-1.3) mg/dL AST 81 H (14-36) U/L ALT 60 H (9-52) U/L Total Protein 5.9 L (6.3-8.2) g/dL Albumin 2.8 L (3.5-5.0) g/dL 07/11/16 Range/Units 06:31 WBC (3.8-10.6) k/uL RBC (3.80-5.40) m/uL Hgb (11.4-16.0) gm/dL Hct (34.0-46.0) % MCV (80.0-100.0) fL RDW (11.5-15.5) % Neutrophils # (1.3-7.7) k/uL PT 12.9 H (9.0-12.0) sec Sodium (137-145) mmol/L Carbon Dioxide (22-30) mmol/L BUN (7-17) mg/dL Glucose (74-99) mg/dL Total Bilirubin (0.2-1.3) mg/dL AST (14-36) U/L ALT (9-52) U/L Total Protein (6.3-8.2) g/dL Albumin (3.5-5.0) g/dL Microbiology - Last 24 Hours (Table) 07/08/16 23:21 Urine Culture - Final Urine,Clean Catch Assessment and Plan (1) Subcapital fracture of hip Narrative/Plan: She will continue with routine postop orthopedic protocol including pain management, wound care, physical therapy, DVT prophylaxis and medical management. Expect that she'll transfer to an extended care facility in the next 1-2 days. Status: Acute Time with Patient: Less than 30
[2016-07-11 13:09] VITALS: BMI 25.7
[2016-07-11] MEDS: FOLIC ACID 1 MG TAB PO SCH (13:51)
[2016-07-11] MEDS: THIAMINE 100 MG TAB PO SCH (13:51)
[2016-07-11] MEDS: LEVOFLOXACIN 250MG-D5W PMX 250 MG in DEXTROSE/WATER 1 50ML.BAG IVPB SCH (13:52)
[2016-07-11] MEDS: MULTIVITAMINS, THERA 1 EACH TAB PO SCH (13:52)
[2016-07-11] MEDS: HYDROcodone/APAP 7.5-325MG 1 EACH TAB PO PRN (17:00)
[2016-07-11] MEDS ORDERED: WARFARIN 5 MG TAB PO ONE (18:00)
[2016-07-11] MEDS: SENNOSIDES-DOCUSATE SODIUM 1 EACH TAB PO SCH (22:30)
[2016-07-11] MEDS: MELATONIN 3 MG TABLET PO SCH (22:30)
[2016-07-12] MEDS: HYDROcodone/APAP 7.5-325MG 1 EACH TAB PO PRN ×3 (03:38→17:02)
[2016-07-12] MEDS: LEVOTHYROXINE 100 MCG TAB PO SCH (05:34)
[2016-07-12 08:01] LABS: ALT 58 U/L (9-52); AST 80 U/L (14-36); Alkaline Phosphatase 50 U/L (38-126); Anion Gap 11 mmol/L; Blood Urea Nitrogen 25 mg/dL (7-17); Calcium 8.1 mg/dL (8.4-10.2); Carbon Dioxide 21 mmol/L (22-30); Chloride 104 mmol/L (98-107); Glucose 105 mg/dL (74-99); Non-African American GFR(MDRD) 50 (>60 ml/min/1.73 sqM); Potassium 4.8 mmol/L (3.5-5.1); Sodium 136 mmol/L (137-145); Total Bilirubin 0.8 mg/dL (0.2-1.3); Total Protein 5.6 g/dL (6.3-8.2)
--- NOTE | 2016-07-12 08:30 | PN ---
DATE OF SERVICE: 07/11/2016 This 85-year-old woman was admitted after left subcapital fracture surgery, is improving significantly. No chest pain. No palpitation. No fever. The patient has UTI. On exam, alert and oriented times three. Pulse 86, blood pressure 111/70, respiratory rate 16, temperature 98.4, pulse ox 93% on room air. HEENT: Conjunctivae normal. NECK: No jugular venous distention. CARDIOVASCULAR: S1, S2 muffled. RESPIRATORY: Breath sounds diminished at the bases. No rhonchi. No crackles. ABDOMEN: Soft, nontender. Status post surgery. CENTRAL NERVOUS SYSTEM: No focal deficits. LABS: Hemoglobin 11.7, white count 11.2. Sodium is 136. ASSESSMENT: 1. Status post left subcapital fracture and left hip arthroplasty. 2. Fever, possible urinary tract infection, present on admission. 3. Anemia, microcytic, possibly nutritional status present on admission with dilution. 4. Increased WBC. 5. Increased total bilirubin. 6. Increased AST, ALT, present on admission. 7. Increased glucose. 8. Increased history of long-standing anemia with multiple work-ups. 9. Cervical prolapse. 10. History of breast implants. 11. FULL CODE. Recommendations and discussion: Continue current medications. Continue with monitoring. Symptomatic treatment. Otherwise at this time, I would recommend to monitor labs closely. PT, OT evaluation. Possible ECF rehab. Further recommendations to follow. MTDD
--- NOTE | 2016-07-12 09:32 | P.DS ---
Providers Date of admission: 07/08/16 14:17 Expected date of discharge: 07/12/16 Attending physician: Sonido Escobar Consults: 07/08/16 15:32 Consult Physician Urgent Consulting Provider: Yaakov Vasquez Consult Reason/Comments: pre-op clearance Do you want consulting provider notified?: Yes Primary care physician: Stated None - Discharge Diagnosis(es) (1) Subcapital fracture of hip Patient was admitted through the emergency department on 07/08/2016 after suffering a fall at home. X-ray subsequently showed a left femoral neck fracture. She underwent surgical intervention including a left hip hemiarthroplasty on 07/09/2016. She tolerated the procedure well without complication. Her postoperative hospital course has remained without complication. On day of discharge her labs were are within acceptable ranges, vital signs are stable, she is tolerating by mouth meds and diet, abdomen is soft and nontender, wound is benign, she is neurovascular intact. Calf is soft and nontender. She has 2+ dorsalis pedis pulses and less than 2 second cap refill. Pain is controlled with oral pain medication. She has no new complaints. Review of systems is negative for fever, chills, chest pain, shortness breath, numbness, tingling, abdominal pain, calf pain, slurred speech or other. Current Visit: Yes Status: Acute Priority: Medium Patient Condition at Discharge: Stable Plan - Discharge Summary New Discharge Prescriptions: Docusate [Colace] 100 mg PO BID #60 capsule HYDROcodone/APAP 7.5-325MG [[place] 7.5-325] 1 - 2 each PO Q6HR PRN #90 tab PRN Reason: Pain Warfarin [Coumadin] 2.5 mg PO DAILY #28 tab Discharge Medication List Levothyroxine Sodium [Synthroid] 100 mcg PO DAILY 07/22/14 [History] Naproxen Sodium [Aleve] 440 mg PO Q8H PRN 03/07/16 [History] Docusate [Colace] 100 mg PO BID #60 capsule 07/12/16 [Rx] HYDROcodone/APAP 7.5-325MG [[place] 7.5-325] 1 - 2 each PO Q6HR PRN #90 tab [Rx] Warfarin [Coumadin] 2.5 mg PO DAILY #28 tab 07/12/16 [Rx] Follow up Appointment(s)/Referral(s): None,Stated [Primary Care Provider] - 1-2 days Sonido Escobar MD [STAFF PHYSICIAN] - 2 Weeks Ambulatory/Diagnostic Orders: Prothrombin Time INR [LAB.AMB] Location: Determined By Patient Activity/Diet/Wound Care/Special Instructions: Weightbearing as tolerated Take meds as directed Follow-up with Dr. Escobar in office, [phone] Keep wound clean and dry Hip precautions Discharge Disposition: TRANSFER TO SNF/ECF
[2016-07-12 09:44] LABS: Anisocytosis Moderate; CH 33.5; HCT 22.6 % (34.0-46.0); HDW 2.65; HGB 7.3 gm/dL (11.4-16.0); Immature Gran Flag Marked; MCH 33.9 pg (25.0-35.0); MCHC 32.3 g/dL (31.0-37.0); MCV 105.1 fL (80.0-100.0); Macrocytosis Marked; Mean Platelet Volume 8.6; RBC 2.15 m/uL (3.80-5.40); RDW 22.4 % (11.5-15.5); WBC (Perox) 10.52
[2016-07-12] MEDS ORDERED: FUROSEMIDE 10 MG/ML 2 ML VIAL IVP ONE (11:40)
[2016-07-12 11:41] LABS: Add Differential Manual Differential
[2016-07-12 11:46] LABS: Band Neutrophils % 0.5 %; Metamyelocytes % 1.5 %; Myelocytes % 0.5 %; Nucleated Red Blood Cells 2 /100 WBC (0-0); Total Cells Counted 200
[2016-07-12 11:47] LABS: Basophilic Stippling Present; Polychromasia Present; Toxic Granulation Present; WBC 10.2 k/uL (3.8-10.6)
[2016-07-12] MEDS: MULTIVITAMINS, THERA 1 EACH TAB PO SCH (12:25)
[2016-07-12] MEDS: THIAMINE 100 MG TAB PO SCH (12:25)
[2016-07-12] MEDS: FOLIC ACID 1 MG TAB PO SCH (12:25)
[2016-07-12] MEDS: LEVOFLOXACIN 250MG-D5W PMX 250 MG in DEXTROSE/WATER 1 50ML.BAG IVPB SCH (12:25)
[2016-07-12] MEDS: PANTOPRAZOLE 40 MG TABLET PO SCH (12:26)
[2016-07-12 16:05] LABS: INR 1.8 (<1.1); Prothrombin Time 17.4 sec (9.0-12.0)
--- NOTE | 2016-07-12 16:25 | PN ---
DATE OF SERVICE: 07/12/2016 This 85-year-old woman with a past medical history of multiple medical problems was admitted with left subcapital fracture. Patient had surgery. The patient had anemia. Patient had multiple lab abnormalities. Also patient not being followed by primary physician in the outpatient setting. ECF rehab is suggested at this time. PAST MEDICAL HISTORY: Reviewed. REVIEW OF SYSTEMS: CARDIOVASCULAR: No angina. RESPIRATORY: As mentioned earlier. GI: As mentioned earlier. : No dysuria. NERVOUS SYSTEM: No numbness or weakness. Current medications are reviewed and include: 1. [place] 7.5 mg. 2. Xanax. 3. Folic acid. 4. Dilaudid. 5. Vistaril. 6. Synthroid. 7. Milk of magnesia. 8. Morphine sulfate. 9. Narcan. 10. Zofran. 11. Restoril. PHYSICAL EXAMINATION: Patient alert and oriented x3. Pulse is 94, blood pressure 120/74, respirations 16, temperature 98.3, pulse ox is 90% on room air. HEENT: Conjunctivae normal. NECK: No jugular venous distention. CARDIOVASCULAR: S1 and S2, muffled. RESPIRATORY: Breath sounds diminished at the bases. A few rhonchi, no crackles. ABDOMEN: Soft, nontender. No mass palpable. LEGS: No edema, no swelling. NERVOUS SYSTEM: No focal deficits. LABS: WBC 10, hemoglobin 7.3. Sodium 130, potassium 4.8. ASSESSMENT: 1. Status post left subcapital fracture and left hip hemiarthroplasty. 2. Fever, possible urinary tract infection present on admission. 3. Anemia microcytic, possibly nutritional, present on admission with dilutional. 4. Increased white blood cell count. 5. Increased total bilirubin. 6. Increased AST, ALT present on admission. 7. Increased glucose. 8. History of long-standing anemia with multiple work-ups. 9. Cervical prolapse. 10. History of breast implants. RECOMMENDATIONS AND DISCUSSION: I recommend to continue the current medications, continue monitoring and symptomatic treatment. Otherwise cultures. Continue the rest of the medication. Guarded prognosis. Otherwise await discharge for 24 hours until the fever is controlled. Further recommendations to follow.
[2016-07-12] MEDS ORDERED: WARFARIN 2.5 MG TAB PO ONE (18:00)
[2016-07-12] MEDS: SENNOSIDES-DOCUSATE SODIUM 1 EACH TAB PO SCH (19:56)
[2016-07-12] MEDS: MELATONIN 3 MG TABLET PO SCH (19:56)
[2016-07-12] MEDS: IPRATROPIUM 0.5 MG/2.5 ML NEBU INHALATION SCH (20:51)
[2016-07-12] MEDS: LEVALBUTEROL NEB (CONC) 1.25 MG/0.5 ML AMP INHALATION SCH (20:51)
[2016-07-13] MEDS: LEVOTHYROXINE 100 MCG TAB PO SCH (06:27)
[2016-07-13 07:34] LABS: INR 1.6 (<1.1); Prothrombin Time 15.5 sec (9.0-12.0)
[2016-07-13] MEDS: PANTOPRAZOLE 40 MG TABLET PO SCH (08:19)
[2016-07-13] MEDS: LEVALBUTEROL NEB (CONC) 1.25 MG/0.5 ML AMP INHALATION SCH ×2 (08:21→12:10)
[2016-07-13] MEDS: IPRATROPIUM 0.5 MG/2.5 ML NEBU INHALATION SCH ×2 (08:21→12:10)
[2016-07-13] MEDS: traMADol 50 MG TAB PO PRN ×2 (08:23→17:22)
[2016-07-13] MEDS: FOLIC ACID 1 MG TAB PO SCH (11:42)
[2016-07-13] MEDS: THIAMINE 100 MG TAB PO SCH (11:42)
[2016-07-13] MEDS: MULTIVITAMINS, THERA 1 EACH TAB PO SCH (11:42)
[2016-07-13 14:59] LABS: Anisocytosis Moderate; Basophils # (A) 0.1 k/uL (0-0.2); Basophils % (A) 1 %; CH 33.1; Calcium 8.1 mg/dL (8.4-10.2); Eosinophils # (A) 0.7 k/uL (0-0.7); Eosinophils % (A) 7 %; HCT 26.1 % (34.0-46.0); HGB 8.3 gm/dL (11.4-16.0); Hypochromasia Slight; Immature Gran Flag Slight; Luc # (Auto) 0.43; Luc % (Auto) 4; Lymphocytes # (A) 1.8 k/uL (1.0-4.8); Lymphocytes % (A) 17 %; MCH 33.3 pg (25.0-35.0); MCHC 31.9 g/dL (31.0-37.0); MCV 104.2 fL (80.0-100.0); Macrocytosis Marked; Monocytes # (A) 0.6 k/uL (0-1.0); Monocytes % (A) 6 %; Neutrophils # (A) 7.1 k/uL (1.3-7.7); Neutrophils % (A) 66 %; Potassium 4.5 mmol/L (3.5-5.1); RBC 2.51 m/uL (3.80-5.40); RDW 21.8 % (11.5-15.5); WBC 10.9 k/uL (3.8-10.6); WBC (Perox) 11.62
[2016-07-13 15:20] LABS: Manual Review Performed
[2016-07-13 15:21] LABS: Large Platelets Present
[2016-07-13 15:24] LABS: Rouleaux Present
[2016-07-13] MEDS: IPRATROPIUM-ALBUTEROL 3 ML NEB INHALATION SCH ×2 (17:00→20:38)
[2016-07-13] MEDS ORDERED: WARFARIN 2.5 MG TAB PO ONE (18:00)
[2016-07-13] MEDS: MELATONIN 3 MG TABLET PO SCH (21:55)
[2016-07-13] MEDS: SENNOSIDES-DOCUSATE SODIUM 1 EACH TAB PO SCH (21:56)
[2016-07-14 02:35] VITALS: RESP 16
[2016-07-14] MEDS: LEVOTHYROXINE 100 MCG TAB PO SCH (05:59)
[2016-07-14] MEDS: IPRATROPIUM-ALBUTEROL 3 ML NEB INHALATION SCH ×2 (07:07→11:05)
[2016-07-14 07:22] LABS: INR 1.6 (<1.1); Prothrombin Time 15.6 sec (9.0-12.0)
[2016-07-14 07:43] VITALS: BP 119/55; PULSE 75; TEMP 98.6
--- NOTE | 2016-07-14 08:04 | PN ---
DATE OF SERVICE: 07/13/2016 This 85-year-old woman was admitted with hip surgery, is still running some fever. Antibiotics have been changed to Rocephin. The cultures are negative so far. No chest pain or palpitation. On exam, alert and oriented x3. Pulse is 89, blood pressure 119/56, respirations 16, temperature is 97.6, pulse ox 95% on room air. HEENT: Conjunctivae normal. NECK: No jugular venous distension. CARDIOVASCULAR SYSTEM: S1, S2, muffled. RESPIRATORY: Breath sounds diminished at the bases. No rhonchi, no crackles. Abdomen is soft, nontender. EXTREMITIES: Legs status post surgery. NERVOUS SYSTEM: No focal deficits. LABS: WBC is 10.9, hemoglobin is 8.3, MCV 104.2, INR is 1.6. Other labs are noted. ASSESSMENT: 1. Status post left subcapital fracture and left hip hemiarthroplasty. 2. Fever with possible urinary tract infection, present on admission. 3. Anemia, microcytic, possibly nutritional present on admission with dilutional. 4. Increased WBC. 5. Increased total bilirubin. 6. Increased AST, ALT present on admission. 7. Increased glucose. 8. History of long-standing anemia with multiple work-ups in the past. 9. Cervical prolapse history. 10. History of breast implants. RECOMMENDATION: Recommend to continue with current medication. Continue with the monitoring and symptomatic treatment. Otherwise, at this time I would repeat the labs. Continue with antibiotics, wait at least 24 hours afebrile before moving to the rehab. Otherwise, continue with the current medication. Further recommendations to follow.
--- NOTE | 2016-07-14 10:20 | P.PN ---
Subjective Principal diagnosis: Left hip fracture Patient is postop day #4 from left hip hemiarthroplasty performed by Dr. Escobar for a left femoral neck fracture. She is seen at bedside this morning. She has expected postoperative pain at the left hip but it is improved. She denies new complaints. She is denying numbness or tingling throughout the lower extremity. She denies calf pain. Review of systems is negative for fever, chills, chest pain, shortness of breath, nausea, vomiting, dizziness, headaches , slurred speech or other. Objective - Vital Signs Vital signs: Vital Signs Temp 98.6 F 07/14/16 07:30 Pulse 75 07/14/16 08:00 Resp 16 07/14/16 08:00 BP 119/55 07/14/16 07:30 Pulse Ox 96 07/14/16 07:30 Intake & Output 07/13/16 07/14/16 07/14/16 18:59 06:59 18:59 Intake Total 230 0 Output Total 1 Balance 229 0 Weight 68.039 kg 68.039 kg Intake: Intake, IV Titration 50 Amount cefTRIAXone 1,000 mg In 50 Sodium Chloride 0.9% 50 ml @ 100 mls/hr IVPB Q24HR [facility] Rx#:[id number] Oral 180 0 Output: Urine 1 Other: Voiding Method Bedside Commode Bedside Commode Bedpan Bedpan Diaper Diaper # Voids 1 1 1 # Bowel Movements 1 - Exam Inspection of the left lower extremity shows a benign surgical wound. There is no active bleeding, dehiscence or drainage. Neurovascular status intact throughout the lower extremity. She has active plantar flexion and dorsiflexion. Sensation to light touch is intact throughout the lower extremity. Calf is soft and nontender. 2+ dorsalis pedis pulses and less than 2 second cap refill is present. - Constitutional General appearance: Present: no acute distress - Labs CBC & Chem 7: 07/13/16 06:52 07/13/16 06:52 Labs: Abnormal Lab Results - Last 24 Hours (Table) 07/13/16 07/13/16 07/14/16 Range/Units 06:52 06:52 06:44 WBC 10.9 H (3.8-10.6) k/uL RBC 2.51 L (3.80-5.40) m/uL Hgb 8.3 L (11.4-16.0) gm/dL Hct 26.1 L (34.0-46.0) % MCV 104.2 H (80.0-100.0) fL RDW 21.8 H (11.5-15.5) % PT 15.6 H (9.0-12.0) sec Sodium 135 L (137-145) mmol/L Carbon Dioxide 21 L (22-30) mmol/L BUN 26 H (7-17) mg/dL Creatinine 1.18 H (0.52-1.04) mg/dL Glucose 102 H (74-99) mg/dL Calcium 8.1 L (8.4-10.2) mg/dL Microbiology - Last 24 Hours (Table) 07/12/16 19:55 Urine Culture - Final Urine,Voided 07/10/16 22:31 Blood Culture - Preliminary Blood No Growth after 72 hours 07/12/16 18:07 Blood Culture - Preliminary Blood No Growth after 24 hours Assessment and Plan (1) Subcapital fracture of hip Narrative/Plan: Her discharge was held up due to a spike in temperature. She has been afebrile for the past 24 hours and her labs look stable. Expect that she should be a little to discharge to extended care facility today. She will continue with routine postop orthopedic protocol including pain management, wound care, physical therapy, DVT prophylaxis and medical management in the interim. Status: Acute Time with Patient: Less than 30
[2016-07-14 11:00] LABS: Calcium 8.3 mg/dL (8.4-10.2)
[2016-07-14] MEDS ORDERED: CEFUROXIME 250 MG TAB PO SCH (11:00)
[2016-07-14] MEDS: FOLIC ACID 1 MG TAB PO SCH (12:43)
[2016-07-14] MEDS: PANTOPRAZOLE 40 MG TABLET PO SCH (12:43)
[2016-07-14] MEDS: THIAMINE 100 MG TAB PO SCH (12:43)
[2016-07-14] MEDS: MULTIVITAMINS, THERA 1 EACH TAB PO SCH (12:43)
[2016-07-14] MEDS: traMADol 50 MG TAB PO PRN (15:01)
--- NOTE | 2016-07-14 15:41 | PN ---
DATE OF SERVICE: 07/14/2016 This 85 -year-old woman who was admitted after left subcapital fracture and surgery, had multiple medical issues and multiple laboratory abnormalities. The patient also running fever. Also after taking antibiotics, Rocephin, the patient at this time. Cultures are negative so far at this time. Past medical history reviewed. REVIEW OF SYSTEMS: CARDIOVASCULAR: No angina or palpitations. RESPIRATORY: As mentioned earlier. GASTROINTESTINAL: As mentioned earlier. GENITOURINARY: No dysuria. Current medications are reviewed and include: 1. Anvik 7.5 p.o. daily. 2. Duoneb q.i.d. and p.r.n. 3. Xanax 0.25 4. Rocephin 1 gram daily. 5. Ceftin 500 mg b.i.d. 6. Folic acid 1 mg. 8. Dilaudid. 9. Vistaril 25 mg q.4h p.r.n. 10. Synthroid. 11. Milk of magnesia. 12. Melatonin. 13. Morphine sulfate. 14. Multivitamins. 15. Narcan. 16. Zofran. 17. Protonix 40 mg daily. 18. Senokot-S two tablets q.h.s. 19. Restoril 15 mg 20. Vitamin B 100 mg daily. 21. Ultram 50 mg p.o. q.6 p.r.n. PHYSICAL EXAMINATION: Patient is alert and oriented x2. Pulse is 77, blood pressure 190/54. Respiratory rate 16. Temperature 98.7, pulse ox 97% on 3 L. HEENT: Conjunctivae normal. Oral mucosa moist. NECK: No jugular venous distention. No carotid bruit. No lymph node enlargement. CARDIOVASCULAR: S1, S2 muffled. No S3, no S4. RESPIRATORY: Breath sounds diminished at the bases. Bilateral scattered rhonchi and crackles. ABDOMEN: Soft, nontender. No mass palpable. LEGS: No edema. No swelling. CENTRAL NERVOUS SYSTEM: Higher functions as mentioned earlier. Moves all four limbs. No focal deficits. LYMPHATICS: No lymph nodes palpable in the neck, axillae or groin. SKIN: No ulcer, rash or bleeding. LABS: WBC 11.8, hemoglobin 8.3 with INR is 1.6. Sodium is 135, potassium 4.5, creatinine 1.18. ASSESSMENT: 1. Status post left subcapital fracture and left hip hemiarthroplasty. 2. Fever with possible urinary tract infection acute present on admission. 3. Anemia, microcytic possibly nutritional. Present on admission, dilutional. 4. Increased WBC. 5. Increased total bilirubin. 6. Increased AST, ALT present on admission. 7. Increased glucose. 8. History of long-standing anemia with multiple workups in the past. 9. History of breast implants. 10. FULL CODE. RECOMMENDATIONS AND DISCUSSION: In this 85-year-old woman who presented with multiple complex medical issues, we will monitor the patient closely, continue the current medications. Continue symptomatic treatment and otherwise from a medical standpoint following medications are recommended: Follow up with Dr. Sudhir Youssef in 2 to 3 days, CBC, BMP in two to three days, recommendations per Orthopedic surgery. CBC, CMP, at the [facility]. MEDICATIONS: 1. Ceftin 500 mg p.o. b.i.d. for 5 days. 2. Colace 100 milligrams b.i.d. p.r.n. 3. Folic acid 1 mg daily. 4. Anvik 7.5 mg q6h p.r.n. 5. Synthroid 100 mcg p.o. daily. 6. Multivitamin 1 p.o. daily. 7. Protonix 40 mg daily. 8. Senokot two tablets q.h.s. 9. Vitamin B 100 mg daily. 10. Coumadin 2.5 mg daily, PT and INR, continue monitoring. Once again, the patient will be discharged in a stable condition with guarded prognosis. MTDD
== END 2016-07-14 15:00 | DRG 470 ==
LOC: EC 12:15 → 3SUR 14:17
PROVIDERS: ADMIT Orthopaedic Surgery Sports Medicine; ATTEND Orthopaedic Surgery Sports Medicine
PROC: 0SRS0JA Replacement of Left Hip Joint, Femoral Surface with Synthetic Substitute, Uncemented, Open Approach (ICD-10-PCS; principal; 2016-07-08)
PROC: 30233N1 Transfusion of Nonautologous Red Blood Cells into Peripheral Vein, Percutaneous Approach (ICD-10-PCS; principal; 2016-07-08)
DX: S72.012A Unspecified intracapsular fracture of left femur, initial encounter for closed fracture (principal); N39.0 Urinary tract infection, site not specified; K75.9 Inflammatory liver disease, unspecified; E11.9 Type 2 diabetes mellitus without complications; D50.9 Iron deficiency anemia, unspecified; I10 Essential (primary) hypertension; E03.9 Hypothyroidism, unspecified; W01.0XXA Fall on same level from slipping, tripping and stumbling without subsequent striking against object, initial encounter; Y92.009 Unspecified place in unspecified non-institutional (private) residence as the place of occurrence of the external cause; N81.2 Incomplete uterovaginal prolapse; Z82.49 Family history of ischemic heart disease and other diseases of the circulatory system; Z98.82 Breast implant status; Z79.899 Other long term (current) drug therapy
CPT/HCPCS: 36415; 71010; 73501; 73502; 80048; 80053; 80300; 81001; 84443; 85025; 85610; 86850; 86900; 86901; 86920; 87040; 87086; 88305; 88311; 93005; 96374; 96376; 99285

== ENCOUNTER 2017-08-11 13:07 | Emergency (ER) | payer MEDICARE, OTHER ==
[2017-08-11 13:24] VITALS: RESP 18
[2017-08-11] MEDS ORDERED: SODIUM CHLORIDE 0.9% 500 ML IV STA (13:34)
--- NOTE | 2017-08-11 13:37 | ED ---
General Adult HPI - General Chief complaint: Syncope Stated complaint: Syncope Time Seen by Provider: 08/11/17 13:12 Source: EMS, RN notes reviewed Mode of arrival: EMS Limitations: no limitations - History of Present Illness Initial comments: Patient 86-year-old female who presents emergency room today EMS, with chief complaint of a simple episode. She does not that she was at the grocery store shopping when she felt that she needed to use the bathroom. She states she felt like she needed to have a bowel movement. States next thing She knew she woke up and she was told that she passed out. She does admit that she's had this happen 2 or 3 or 4 times in the past. She states she's been here to the hospital afterwards. She states that this is same circumstances that seemed to happen. She states that she's had full workups and no one has ever been able to tell her the reason why. Patient doesn't use of lower abdominal discomfort currently stating that she feels somewhat constipated at this time. She denies any other complaints. Patient denies any recent fever, chills, shortness of breath, chest pain, back pain, numbness or tingling, dysuria or hematuria, headaches or visual changes, or any other complaints. - Related Data Home Medications Medication Instructions Recorded Confirmed Ibuprofen [Advil] 200 mg PO Q6HR PRN 08/11/17 08/11/17 Levothyroxine Sodium [Synthroid] 100 mcg PO DAILY 08/11/17 08/11/17 Allergies Allergy/AdvReac Type Severity Reaction Status Date / Time Anesthetics - Bianca Type- Allergy Itching Verified 08/11/17 13:36 Parabens [Anesthetics - Bianca Type] celecoxib [From Celebrex] Allergy Itching Verified 08/11/17 13:36 doxycycline Allergy Rash/Hives Verified 08/11/17 13:36 iodine Allergy Rash/Hives Verified 08/11/17 13:36 iron Allergy Itching Verified 08/11/17 13:36 losartan potassium Allergy Rash/Hives Verified 08/11/17 13:36 [From Hyzaar] meperidine HCl [From Demerol] Allergy Anaphylaxis Verified 08/11/17 13:36 metformin HCl Allergy Anaphylaxis Verified 08/11/17 13:36 [From Glucophage] Tetracyclines Allergy Rash/Hives Verified 02/02/18 13:36 Anesthetics - Amide Type AdvReac Rapid Verified 08/11/17 13:36 Heart Rate hydrochlorothiazide AdvReac Nausea & Verified 08/11/17 13:36 [From Manuelar] Vomiting shellfish derived AdvReac Rash/Hives Verified 08/11/17 13:36 modex AdvReac Nausea & Uncoded 08/11/17 13:15 Vomiting Review of Systems ROS Statement: Those systems with pertinent positive or pertinent negative responses have been documented in the HPI. ROS Other: All systems not noted in ROS Statement are negative. Past Medical History Past Medical History: Thyroid Disorder Additional Past Medical History / Comment(s): anemia, abnormal liver enzymes History of Any Multi-Drug Resistant Organisms: None Reported Past Surgical History: Tonsillectomy Additional Past Surgical History / Comment(s): rectal prolapse repair, breast implants Past Anesthesia/Blood Transfusion Reactions: Previous Problems w/ Anesthesia Additional Past Anesthesia/Blood Transfusion Reaction / Comment(s): ALLERGIES TO SOME ANESTHETICS-SEE ALLERGY LIST Past Psychological History: No Psychological Hx Reported Smoking Status: Never smoker Past Alcohol Use History: None Reported Past Drug Use History: None Reported - Past Family History Father Family Medical History: Cancer Additional Family Medical History / Comment(s): STOMACH ULCERS AND CANCER Mother Family Medical History: Myocardial Infarction ([place]) Additional Family Medical History / Comment(s): SEVERAL MS'S General Exam - General Exam Comments Initial Comments: General: The patient is awake and alert, in no distress, and does not appear acutely ill. Eye: Pupils are equal, round and reactive to light, extra-ocular movements are intact. No nystagmus. There is normal conjunctiva bilaterally. No signs of icterus. Ears, nose, mouth and throat: There are moist mucous membranes and no oral lesions. Neck: The neck is supple, there is no tenderness or JVD. Cardiovascular: There is a regular rate and rhythm. No murmur, rub or gallop is appreciated. Respiratory: Lungs are clear to auscultation, respirations are non-labored, breath sounds are equal. No wheezes, stridor, rales, or rhonchi. Gastrointestinal: Soft, non-distended, non-tender abdomen without masses or organomegaly noted. There is no rebound or guarding present. No CVA tenderness. Bowel sounds are unremarkable. Musculoskeletal: Normal ROM, no tenderness. Strength 5/5. Sensation intact. Pulses equal bilaterally 2+. Neurological: A&O x 3. CN II-XII intact, There are no obvious motor or sensory deficits. Coordination appears grossly intact. Speech is normal. Skin: Skin is warm and dry and no rashes or lesions are noted. Psychiatric: Cooperative, appropriate mood & affect, normal judgment. Limitations: no limitations Course Vital Signs 08/11/17 08/11/17 13:15 14:58 Temperature 97.5 F L Pulse Rate 82 87 Respiratory 18 18 Rate Blood Pressure 119/57 148/63 O2 Sat by Pulse 100 99 Oximetry Medical Decision Making - Medical Decision Making Patient reexamined at this time shows no signs of distress. Case discussed with attending physician Dr. Newton. Patient's labs reviewed. Patient's imaging shows possible fecal impaction. It was discussed about this impaction. She declined this. She was agreeable for an enema. Enema was given by nursing staff and she was able have a large bowel movement. Patient isn't feeling better here in emergency room. She does admit to a syncopal episode earlier today while she was grocery shopping. She states this is the third time that this is having. She describes each episode as being when she needs to go to the bathroom and then she apparently passes out. She states that she has been worked up for this in the past. She states she does not want be admitted will not stay here at the hospital. Previous reports were reviewed. Patient did leave AMA for syncopal episodes. Patient states she would follow family doctor. She is feeling fine at this time comfortable being discharged to her home. Daughter is at bedside currently. Patient will be discharged advised follow-up family doctor return here to the emergency room symptoms increase or worsen or further concerns. - Lab Data Result diagrams: 08/11/17 13:40 08/11/17 13:40 Lab Results 08/11/17 08/11/17 08/11/17 Range/Units 13:40 13:40 13:40 WBC 8.3 (3.8-10.6) k/uL RBC 2.27 L (3.80-5.40) m/uL Hgb 7.8 L (11.4-16.0) gm/dL Hct 24.7 L (34.0-46.0) % MCV 109.0 H (80.0-100.0) fL MCH 34.5 (25.0-35.0) pg MCHC 31.6 (31.0-37.0) g/dL RDW 23.1 H (11.5-15.5) % Plt Count 362 (150-450) k/uL Neutrophils % 54 % Lymphocytes % 30 % Monocytes % 8 % Eosinophils % 5 % Basophils % 1 % Neutrophils # 4.4 (1.3-7.7) k/uL Lymphocytes # 2.5 (1.0-4.8) k/uL Monocytes # 0.7 (0-1.0) k/uL Eosinophils # 0.4 (0-0.7) k/uL Basophils # 0.1 (0-0.2) k/uL Manual Slide Review Performed Poikilocytosis (manual Present Anisocytosis Moderate Macrocytosis Marked PT (9.0-12.0) sec INR (<1.2) APTT (22.0-30.0) sec Sodium 140 (137-145) mmol/L Potassium 4.7 (3.5-5.1) mmol/L Chloride 102 (98-107) mmol/L Carbon Dioxide 24 (22-30) mmol/L Anion Gap 14 mmol/L BUN 26 H (7-17) mg/dL Creatinine 1.33 H (0.52-1.04) mg/dL Est GFR (MDRD) Af Amer 46 (>60 ml/min/1.73 sqM) Est GFR (MDRD) Non-Af 38 (>60 ml/min/1.73 sqM) Glucose 119 H (74-99) mg/dL Calcium 9.6 (8.4-10.2) mg/dL Total Bilirubin 1.1 (0.2-1.3) mg/dL AST 100 H (14-36) U/L ALT 91 H (9-52) U/L Alkaline Phosphatase 65 (38-126) U/L Total Creatine Kinase 25 L (30-135) U/L CK-MB (CK-2) 0.3 (0.0-2.4) ng/mL CK-MB (CK-2) Rel Index 1.2 Troponin I <0.012 (0.000-0.034) ng/mL Total Protein 7.0 (6.3-8.2) g/dL Albumin 4.0 (3.5-5.0) g/dL 08/11/17 Range/Units 13:40 WBC (3.8-10.6) k/uL RBC (3.80-5.40) m/uL Hgb (11.4-16.0) gm/dL Hct (34.0-46.0) % MCV (80.0-100.0) fL MCH (25.0-35.0) pg MCHC (31.0-37.0) g/dL RDW (11.5-15.5) % Plt Count (150-450) k/uL Neutrophils % % Lymphocytes % % Monocytes % % Eosinophils % % Basophils % % Neutrophils # (1.3-7.7) k/uL Lymphocytes # (1.0-4.8) k/uL Monocytes # (0-1.0) k/uL Eosinophils # (0-0.7) k/uL Basophils # (0-0.2) k/uL Manual Slide Review Poikilocytosis (manual Anisocytosis Macrocytosis PT 11.3 (9.0-12.0) sec INR 1.2 H (<1.2) APTT 19.9 L (22.0-30.0) sec Sodium (137-145) mmol/L Potassium (3.5-5.1) mmol/L Chloride (98-107) mmol/L Carbon Dioxide (22-30) mmol/L Anion Gap mmol/L BUN (7-17) mg/dL Creatinine (0.52-1.04) mg/dL Est GFR (MDRD) Af Amer (>60 ml/min/1.73 sqM) Est GFR (MDRD) Non-Af (>60 ml/min/1.73 sqM) Glucose (74-99) mg/dL Calcium (8.4-10.2) mg/dL Total Bilirubin (0.2-1.3) mg/dL AST (14-36) U/L ALT (9-52) U/L Alkaline Phosphatase (38-126) U/L Total Creatine Kinase (30-135) U/L CK-MB (CK-2) (0.0-2.4) ng/mL CK-MB (CK-2) Rel Index Troponin I (0.000-0.034) ng/mL Total Protein (6.3-8.2) g/dL Albumin (3.5-5.0) g/dL Disposition Clinical Impression: Constipation, Syncope Disposition: HOME SELF-CARE Condition: Good Instructions: Syncope (ED) Additional Instructions: Please increase oral fluids as discussed. Please follow up the family doctor in the next 2 days. Please return here to the emergency room for any symptoms increase or worsen. Referrals: Sudhir Youssef MD [Primary Care Provider] - 1-2 days Time of Disposition: 16:20
[2017-08-11 14:05] LABS: Calcium 9.6 mg/dL (8.4-10.2); Potassium 4.7 mmol/L (3.5-5.1); Total Bilirubin 1.1 mg/dL (0.2-1.3)
[2017-08-11 14:12] LABS: Creatine Kinase 25 U/L (30-135)
[2017-08-11 14:15] LABS: Anisocytosis Moderate; Basophils # (A) 0.1 k/uL (0-0.2); Basophils % (A) 1 %; Eosinophils # (A) 0.4 k/uL (0-0.7); Eosinophils % (A) 5 %; HCT 24.7 % (34.0-46.0); HGB 7.8 gm/dL (11.4-16.0); Lymphocytes # (A) 2.5 k/uL (1.0-4.8); Lymphocytes % (A) 30 %; MCH 34.5 pg (25.0-35.0); MCHC 31.6 g/dL (31.0-37.0); Macrocytosis Marked; Mean Platelet Volume 8.2; Monocytes # (A) 0.7 k/uL (0-1.0); Monocytes % (A) 8 %; Neutrophils # (A) 4.4 k/uL (1.3-7.7); Neutrophils % (A) 54 %; Platelet Count 362 k/uL (150-450); RBC 2.27 m/uL (3.80-5.40); RDW 23.1 % (11.5-15.5); WBC 8.3 k/uL (3.8-10.6)
--- NOTE | 2017-08-11 14:19 | XR ---
EXAMINATION TYPE: XR KUB DATE OF EXAM: 08/11/2017 2:11 PM CLINICAL HISTORY: Syncope TECHNIQUE: Single supine KUB image of the abdomen is obtained. COMPARISON: None. FINDINGS: Scattered gas is seen in non-distended small bowel loops. Gas and fecal material is seen in non-distended colon. There is no visceromegaly, pneumoperitoneum, or abnormal calcification apprecia corrie. The lung bases are clear and the osseous structures are intact. Moderate multilevel degenerative changes of the visualized thoracolumbar spine and extensive degenerative changes of the thoracolumba r junction are present. Rectal fecal ball measuring 7.2 cm is noted. There is partial visualization o f a left-sided femoral arthroplasty. IMPRESSION: Nonobstructive bowel gas pattern with note made of a 7.2 cm rectal fecal impaction.
[2017-08-11 14:21] LABS: INR 1.2 (<1.2); Prothrombin Time 11.3 sec (9.0-12.0)
--- NOTE | 2017-08-11 14:22 | XR ---
EXAMINATION TYPE: XR chest 2V DATE OF EXAM: 08/11/2017 COMPARISON: 07/11/2016 HISTORY: Syncope TECHNIQUE: Frontal and lateral views of the chest are obtained. FINDINGS: There is no focal air space opacity, pleural effusion, or pneumothorax seen. The cardiac silhouette size is within normal limits. The osseous structures are intact. Multilevel moderate deg enerative changes of the thoracic spine and acromioclavicular joints are seen as well as mild glenohu meral arthropathy. There is diffuse osseous demineralization noted. IMPRESSION: No acute cardiopulmonary process.
[2017-08-11 14:25] LABS: Creatine Kinase MB 0.3 ng/mL (0.0-2.4); Troponin I <0.012 ng/mL (0.000-0.034)
[2017-08-11 14:26] LABS: Poikilocytosis (M) Present
[2017-08-11 14:32] LABS: Partial Thromboplastin Time 19.9 sec (22.0-30.0)
[2017-08-11 16:25] VITALS: BP 144/65; PULSE 96; TEMP 97.8
== END 2017-08-11 16:59 | disposition home or self-care (01) ==
LOC: EC 13:07
DX: R55 Syncope and collapse (principal); K59.00 Constipation, unspecified; E07.9 Disorder of thyroid, unspecified; Z88.4 Allergy status to anesthetic agent; Z88.1 Allergy status to other antibiotic agents; Z91.048 Other nonmedicinal substance allergy status; Z88.8 Allergy status to other drugs, medicaments and biological substances; Z91.013 Allergy to seafood; Z88.5 Allergy status to narcotic agent; Z79.899 Other long term (current) drug therapy
CPT/HCPCS: 36415; 71046; 74018; 80053; 82550; 82553; 84484; 85025; 85610; 85730; 93005; 96360; 96361; 99285

== ENCOUNTER 2017-08-13 18:39 | Inpatient (IN) | payer MEDICARE, OTHER ==
[2017-08-13] MEDS ORDERED: SODIUM CHLORIDE 0.9% 1,000 ML IV STA (19:29)
[2017-08-13] MEDS ORDERED: ONDANSETRON 4 MG/2 ML VIAL IVP STA (19:29)
[2017-08-13] MEDS ORDERED: PANTOPRAZOLE 40 MG/10 ML VIAL IVP STA (19:29)
[2017-08-13] MEDS ORDERED: ONDANSETRON 4 MG/2 ML VIAL IVP PRN (19:40)
[2017-08-13] MEDS ORDERED: HYDROmorphone 4 MG/ML 1 ML SYRINGE IVP PRN (19:40)
[2017-08-13] MEDS ORDERED: NALOXONE 0.4 MG/ML 1 ML VIAL IV PRN (19:40)
--- NOTE | 2017-08-13 19:40 | ED ---
GI Bleed HPI - General Chief complaint: GI Bleed Stated complaint: GI Bleed Time Seen by Provider: 08/13/17 18:53 Source: patient, EMS Mode of arrival: EMS Limitations: no limitations - History of Present Illness Initial comments: He 6 years old female transferred from [facility] by , she presents today with abdominal pain and rectal bleed rectal bleed has been going on for a few days and pain is in the left lower quadrant area and she had the rectal exam done there which was positive pretty closely and then now she has dropped her hemoglobin from 10-[address] of the abdomen showed colitis of the descending colon. She denies any headaches no neck stiffness no chest pain or shortness of breath no abdominal pain no frequency urgency dysuria - Related Data Home Medications Medication Instructions Recorded Confirmed Levothyroxine Sodium [Synthroid] 100 mcg PO DAILY 08/11/17 08/13/17 Naproxen Sodium [Aleve] 220 mg PO DAILY PRN 08/13/17 08/13/17 Allergies Allergy/AdvReac Type Severity Reaction Status Date / Time Anesthetics - Bianca Type- Allergy Itching Verified 08/13/17 19:09 Parabens [Anesthetics - Bianca Type] celecoxib [From Celebrex] Allergy Itching Verified 08/13/17 19:09 doxycycline Allergy Rash/Hives Verified 08/13/17 19:09 iodine Allergy Rash/Hives Verified 08/13/17 19:09 iron Allergy Itching Verified 08/13/17 19:09 losartan potassium Allergy Rash/Hives Verified 08/13/17 19:09 [From Hyzaar] meperidine HCl [From Demerol] Allergy Anaphylaxis Verified 08/13/17 19:09 metformin HCl Allergy Anaphylaxis Verified 08/13/17 19:09 [From Glucophage] Tetracyclines Allergy Rash/Hives Verified 08/13/17 19:09 Anesthetics - Amide Type AdvReac Rapid Verified 08/13/17 19:09 Heart Rate hydrochlorothiazide AdvReac Nausea & Verified 08/13/17 19:09 [From Hyzaar] Vomiting shellfish derived AdvReac Rash/Hives Verified 08/13/17 19:09 modex AdvReac Nausea & Uncoded 08/13/17 18:42 Vomiting Review of Systems ROS Statement: Those systems with pertinent positive or pertinent negative responses have been documented in the HPI. ROS Other: All systems not noted in ROS Statement are negative. Past Medical History Past Medical History: Thyroid Disorder Additional Past Medical History / Comment(s): anemia, abnormal liver enzymes History of Any Multi-Drug Resistant Organisms: None Reported Past Surgical History: Tonsillectomy Additional Past Surgical History / Comment(s): rectal prolapse repair, breast implants, vein stripping Past Anesthesia/Blood Transfusion Reactions: Previous Problems w/ Anesthesia Additional Past Anesthesia/Blood Transfusion Reaction / Comment(s): ALLERGIES TO SOME ANESTHETICS-SEE ALLERGY LIST Past Psychological History: No Psychological Hx Reported Smoking Status: Never smoker Past Alcohol Use History: None Reported Past Drug Use History: None Reported - Past Family History Father Family Medical History: Cancer Additional Family Medical History / Comment(s): STOMACH ULCERS AND CANCER Mother Family Medical History: Myocardial Infarction ([place]) Additional Family Medical History / Comment(s): SEVERAL SC'S General Exam - General Exam Comments Initial Comments: General: The patient is awake and alert, in no distress, and does not appear acutely ill. Skin: Skin is warm and dry and no rashes or lesions are noted. Eye: Pupils are equal, round and reactive to light, extra-ocular movements are intact; there is normal conjunctiva bilaterally. Ears, nose, mouth and throat: There are moist mucous membranes and no oral lesions. Neck: The neck is supple, there is no tenderness or JVD. Cardiovascular: There is a regular rate and rhythm. No murmur, rub or gallop is appreciated. Respiratory: To auscultation bilateral, no wheezing no rhonchi no distress respiratory jay noticed Gastrointestinal: Soft, non-distended, septic left lower quadrant area and the left side of the abdomen she slightly tender in the left upper quadrant area left paraumbilical and left lower quadrant area positive bowel sounds no guarding no rebounds Back: There is no tenderness to palpation in the midline. There is no obvious deformity. Musculoskeletal: Normal ROM, no tenderness, There is no pedal edema. There is no calf tenderness or swelling. No cords were appreciated. Neurological: CN II-XII intact, Cranial nerves III through XII are intact. There are no obvious motor or sensory deficits. Coordination appears grossly intact. Speech is normal. Psychiatric: Cooperative, appropriate mood & affect, normal judgment. Limitations: no limitations Course Vital Signs 08/13/17 18:42 Temperature 98.6 F Pulse Rate 95 Respiratory 20 Rate Blood Pressure 129/61 O2 Sat by Pulse 99 Oximetry , Her CBC, compressive metabolic panel, CT abdomen were reviewed from [facility] and creatinine is 1.3 hemoglobin is 7.[address] abdomen was positive for colitis in the descending colon area these findings were discussed with the Dr. Mata she be admitted to Dr. Rebolledo's service service. Hemoglobin be repeated now she needs any transfusion she be started on a IV fluids and now depending on the repeat hemoglobin that decision. And if she is a candidate for transfusion and she be also going on Rocephin and Flagyl, we'll allow consult Dr. Cindi Fishman for a pop probable possible scope Disposition Clinical Impression: GI bleed, Colitis Disposition: ADMITTED IP TO THIS HOSP Condition: Good Referrals: Sudhir Youssef MD [Primary Care Provider] - 1-2 days
[2017-08-13] MEDS ORDERED: cefTRIAXone IN SWFI 2,000 MG/20 ML SYRINGE IVP STA (19:45)
[2017-08-13] MEDS ORDERED: metroNIDAZOLE-NS PMX 500 MG in SALINE 1 100ML.BAG IVPB STA (19:46)
[2017-08-13 20:05] LABS: INR 1.1 (<1.2); Partial Thromboplastin Time 23.4 sec (22.0-30.0); Prothrombin Time 11.1 sec (9.0-12.0)
[2017-08-13 20:06] LABS: Anisocytosis Moderate; Basophils # (A) 0.1 k/uL (0-0.2); Basophils % (A) 0 %; Eosinophils # (A) 0.3 k/uL (0-0.7); Eosinophils % (A) 2 %; HCT 23.6 % (34.0-46.0); HGB 7.6 gm/dL (11.4-16.0); Hypochromasia Slight; Lymphocytes # (A) 3.9 k/uL (1.0-4.8); Lymphocytes % (A) 19 %; MCH 34.9 pg (25.0-35.0); MCV 109.1 fL (80.0-100.0); Macrocytosis Marked; Mean Platelet Volume 8.7; Monocytes # (A) 1.1 k/uL (0-1.0); Monocytes % (A) 5 %; Neutrophils # (A) 14.7 k/uL (1.3-7.7); Neutrophils % (A) 72 %; Platelet Count 371 k/uL (150-450); RBC 2.16 m/uL (3.80-5.40); RDW 23.2 % (11.5-15.5); WBC 20.5 k/uL (3.8-10.6)
[2017-08-13 20:26] LABS: Glucose,Whole Blood 96 mg/dL (75-99)
[2017-08-13 20:29] LABS: Creatine Kinase 24 U/L (30-135)
[2017-08-13 20:42] LABS: Creatine Kinase MB 0.2 ng/mL (0.0-2.4); Troponin I <0.012 ng/mL (0.000-0.034)
[2017-08-13 20:47] VITALS: BMI 27.3
[2017-08-14 01:21] LABS: Anisocytosis Moderate; Basophils # (A) 0.1 k/uL (0-0.2); Basophils % (A) 0 %; Eosinophils # (A) 0.6 k/uL (0-0.7); Eosinophils % (A) 4 %; HCT 21.6 % (34.0-46.0); Hypochromasia Slight; Lymphocytes % (A) 20 %; MCH 33.8 pg (25.0-35.0); MCHC 30.3 g/dL (31.0-37.0); MCV 111.5 fL (80.0-100.0); Macrocytosis Marked; Mean Platelet Volume 8.1; Monocytes % (A) 6 %; Neutrophils # (A) 10.2 k/uL (1.3-7.7); Neutrophils % (A) 67 %; Platelet Count 324 k/uL (150-450); RBC 1.94 m/uL (3.80-5.40); RDW 23.4 % (11.5-15.5); WBC 15.3 k/uL (3.8-10.6)
[2017-08-14 01:24] LABS: HGB 6.6 gm/dL (11.4-16.0)
[2017-08-14] MEDS: LEVOTHYROXINE 100 MCG TAB PO SCH (05:30)
[2017-08-14] MEDS: metroNIDAZOLE-NS PMX 500 MG in SALINE 1 100ML.BAG IVPB SCH ×3 (08:20→22:44)
[2017-08-14 09:53] LABS: Anion Gap 13 mmol/L; Blood Urea Nitrogen 24 mg/dL (7-17); Calcium 8.5 mg/dL (8.4-10.2); Carbon Dioxide 25 mmol/L (22-30); Chloride 104 mmol/L (98-107); Glucose 165 mg/dL (74-99); Potassium 4.5 mmol/L (3.5-5.1); Sodium 142 mmol/L (137-145)
[2017-08-14 10:10] LABS: Anisocytosis Moderate; Basophils % (A) 0 %; Eosinophils # (A) 0.6 k/uL (0-0.7); Eosinophils % (A) 6 %; HCT 30.2 % (34.0-46.0); Hypochromasia Slight; Lymphocytes % (A) 19 %; MCH 32.6 pg (25.0-35.0); MCHC 31.5 g/dL (31.0-37.0); Macrocytosis Marked; Mean Platelet Volume 8.4; Monocytes # (A) 0.7 k/uL (0-1.0); Monocytes % (A) 7 %; Neutrophils # (A) 6.7 k/uL (1.3-7.7); Neutrophils % (A) 65 %; Platelet Count 283 k/uL (150-450); RBC 2.92 m/uL (3.80-5.40); WBC 10.4 k/uL (3.8-10.6)
[2017-08-14 10:13] LABS: HGB 9.5 gm/dL (11.4-16.0); MCV 103.5 fL (80.0-100.0)
[2017-08-14 10:32] LABS: Poikilocytosis (M) Present
[2017-08-14] MEDS: PANTOPRAZOLE 40 MG/10 ML VIAL IV SCH (11:43)
--- NOTE | 2017-08-14 15:40 | CONS ---
CONSULTATION REQUESTING PHYSICIAN: Dr. Sudhir Youssef. REASON FOR CONSULTATION: Acute abdominal pain and lower GI bleed. HISTORY OF PRESENT ILLNESS: The patient is an 86-year-old pleasant white female, transferred from [facility] when the patient presented with acute onset of lower abdominal pain followed by multiple episodes of bright red blood per rectum. She initially went to [facility] on Monday evening with abdominal pain and constipation and had abdominal x- rays done according to the patient and was told she had fecal impaction. She was given milk of molasses enema and had good results and few hours later she was discharged home. After she went home on Monday night, she had worsening lower abdominal discomfort followed by multiple episodes of rectal bleeding with large amount of clots. She had at least 6 or 7 of these episodes of Monday and then Monday she went back to the emergency room at [facility] wherein had a CT of the abdomen that showed thickening of the colon involving the descending colon consistent with colitis and she was transferred to [facility] for further evaluation. Since being here, she still continues to complain of left lower quadrant abdominal pain. However, she did not have any further episodes of bleeding all day yesterday and so far this morning. She denies any fever, chills, or night sweats. She never had these symptoms in the past. Denies any recent antibiotic use. No fever, chills, or night sweats. Her last colonoscopy was about 10 or 12 years ago, according to the patient was within normal limits. PAST MEDICAL HISTORY: Significant for hypothyroidism. MEDICATIONS: At home, Synthroid and Aleve. ALLERGIES: To METFORMIN, DEMEROL, LOSARTAN, DOXYCYCLINE, IODINE, IRON, HYDROCHLOROTHIAZIDE, SHELLFISH. PAST SURGICAL HISTORY: Tonsillectomy and colonoscopy, rectal prolapse repair, breast implants. SOCIAL HISTORY: No smoking or alcohol use. FAMILY HISTORY: Unremarkable. Father had some stomach ulcers. Mother had AR. REVIEW OF SYSTEMS: CARDIOPULMONARY: No chest pain, shortness of breath. GENITOURINARY: No dysuria, hematuria. MUSCULOSKELETAL: Unremarkable. SKIN: Unremarkable. ENDOCRINE: Unremarkable. PSYCHIATRIC: Unremarkable. NEUROLOGY: Unremarkable. ENT/VISION: Unremarkable. CONSTITUTIONAL: No recent weight loss. No fever, chills, night sweats. PHYSICAL EXAMINATION: She appears comfortable. No apparent distress. VITAL SIGNS: Stable. Blood pressure is 137/60, pulse rate 116, and temperature 98. HEENT EXAMINATION: Unremarkable. Conjunctivae pink. Sclerae anicteric. Oral cavity no lesions. NECK: No JVD or lymph node enlargement. Chest was clear to auscultation. HEART: Regular rate and rhythm. Abdomen was soft. There was severe tenderness in the left lower quadrant area and in the suprapubic area. Rest of the abdomen was benign. Bowel sounds are positive. No organomegaly. EXTREMITIES: No pedal edema. SKIN: No rashes. NEUROLOGIC: Alert and oriented x3. No focal deficits. LAB: WBC 20.5, hemoglobin 7.6, and platelets 371. Last night her hemoglobin dropped to 6.6 requiring 2 units of blood transfusion and this morning hemoglobin is up to 9.5. WBC is 10.4, PTT and INR within normal limits. Basic metabolic panel is within normal limits. CT of the abdomen and pelvis report from [facility] shows thickening of the left descending colon suggestive of acute colitis. IMPRESSION: This is a lady who presents to the hospital with acute onset of severe lower abdominal pain that was preceded by constipation followed by severe bright red blood per rectum. She had several episodes of rectal bleeding all Monday and dropped hemoglobin to 6.6 requiring 2 units of blood transfusion. The CT scan showed thickening of the descending colon consistent with acute colitis. The clinical picture is very consistent with ischemic colitis and possibility of infectious colitis cannot be excluded. Other lower GI causes of bleeding also need to be considered. RECOMMENDATIONS: 1. Agree with blood transfusion. 2. The patient was already started on empiric antibiotics with Rocephin and Flagyl in the ER and will continue the same. 3. Stool studies. 4. Clear liquid diet. 5. We will hold off on any endoscopy intervention because of clinical suspicion for acute ischemic colitis, but we will consider colonoscopy on outpatient basis in 1-2 weeks based on the clinical course. At this time, we will follow her closely during the hospital stay. Thank you for this consultation. MMODL / IJN: [id number] /
[2017-08-14] MEDS ORDERED: cefTRIAXone IN SWFI 2,000 MG/20 ML SYRINGE IVP SCH (21:00)
[2017-08-15 03:01] VITALS: TEMP 98.7
--- NOTE | 2017-08-15 04:53 | HP ---
HISTORY AND PHYSICAL DATE OF ADMISSION: 08/13/17 PRESENT COMPLAINT: Bleeding per rectum. HISTORY OF PRESENTING COMPLAINT: This is a pleasant 87 -year-old patient of Dr. Sudhir Youssef with significant history of hypothyroidism. The patient 3 days ago was shopping and fainted. The patient is brought to the ER, was given a molasses enema. When she went home, she started vomiting and then started having rectal bleeding. Monday, Monday she kept having bleeding per rectum and large blood clots and lower abdominal pain. Finally, she decided to come to the ER feeling very tired and exhausted, rundown. She was admitted for the same. CT scan was suggestive of colitis. REVIEW OF SYSTEMS: Constitutional: Weak and tired. HEENT: Decreased hearing. Respiratory none. Cardiovascular none. Gastrointestinal as above. Genitourinary: Urinary incontinence. Musculoskeletal some pain in the joints. Patient has bilateral knee pain. Dermatological and hematologic, lymphatics none. Psychiatry none. Neurological none. PAST MEDICAL HISTORY: Hypothyroid, abnormal liver enzymes. PAST SURGICAL HISTORY: Rectal prolapse repair, breast implants, vein stripping, tonsillectomy. SOCIAL HISTORY: No smoking. No alcohol. Lives by herself. FAMILY HISTORY: Of stomach ulcers and cancers. HOME MEDICATIONS: 1. Naproxen 220 mg daily p.r.n. 2. Synthroid 100 mcg p.o. daily. ALLERGY: LIST IS LONG INCLUDING MODIC, SHELLFISH, HYDROCHLOROTHIAZIDE, TETRACYCLINE, METFORMIN, LOSARTAN, IODIDE, DOXYCYCLINE, CELEBREX. PHYSICAL EXAMINATION: Vital signs on presentation: Temperature 98.6, pulse 95, respirations 20, blood pressure 120/61, pulse ox 99% on room air. General appearance: Average built, sitting up, tired appearing. Eyes: Pupils equal. Conjunctivae pale. HEENT: Oral cavity normal. Neck JVD not raised. Mass not palpable. Respiratory effort normal. Lungs fair entry. Cardiovascular: 1st and 2nd sounds no edema. ABDOMEN: Soft, minimal lower abdominal tenderness. No guarding, rigidity. Liver and spleen not palpable. Lymphatics: No lymph nodes palpable in neck or axillae. PSYCHIATRY: Alert and oriented x3. Mood and affect normal. Neurological: Pupils equal. Cranial nerves grossly intact. Power and sensation grossly intact. INVESTIGATIONS: Admission white count 20.5, hemoglobin 7.6 did drop down to 6.6 and after transfusion 9.5, potassium 4.5, BUN 24, creatinine 1.04. Investigations: CT scan from outside did show evidence of colitis. ASSESSMENT: 1. Acute colitis, likely ischemic, cannot rule out infective colitis. 2. Acute severe blood loss anemia from lower gastrointestinal bleed. 3. Hypothyroidism. 4. Primary osteoarthritis especially of the knees. 5. Chronic urinary stress incontinence. PLAN: H and H is closely being monitored. The patient is put on IV ceftriaxone and Flagyl. Gastroenterology, Dr. Dhillon was consulted. The patient's NSAIDS are being held. Care was discussed with the patient. Questions were answered. Copy to Dr. Sudhir Youssef. MMODL / IJN: [id number] /
[2017-08-15] MEDS: LEVOTHYROXINE 100 MCG TAB PO SCH (06:25)
[2017-08-15] MEDS: PANTOPRAZOLE 40 MG/10 ML VIAL IV SCH (08:44)
[2017-08-15] MEDS: metroNIDAZOLE-NS PMX 500 MG in SALINE 1 100ML.BAG IVPB SCH (09:44)
--- NOTE | 2017-08-15 09:54 | P.PN ---
Subjective Progress Note Date: 08/15/17 Principal diagnosis: Colitis 86-year-old female admitted with acute severe lower abdominal pain with bright red blood per rectum suspect ischemic colitis. No further bloody bowel movements. Reports abdominal discomfort yesterday after receiving intravenous Rocephin. Afebrile. Requesting diet advancement. Objective - Vital Signs Vital signs: Vital Signs Temp 98.7 F 08/15/17 03:00 Pulse 66 08/15/17 03:00 Resp 16 08/15/17 03:00 BP 111/56 08/15/17 03:00 Pulse Ox 97 08/15/17 03:00 Intake & Output 08/14/17 08/15/17 08/15/17 18:59 06:59 18:59 Intake Total 1330 0 Balance 1330 0 Intake: IV 0 Sodium Chloride 0.9% 1, 0 000 ml @ 100 mls/hr IV . Q10H STA Rx#:[id number] Oral 1020 Blood Product 310 Rc As-1 Unit 310 [id number] Other: Voiding Method Bedpan # Voids 1 1 - Exam General appearance: The patient is alert, oriented, in no acute distress. HET: Head is normocephalic and atraumatic. Pupils are equal and reactive. Oropharynx is clear without lesions. Neck: Supple without lymphadenopathy. Trachea midline. Heart: S1 S2. Regular rate and rhythm. Lungs: No crackles or wheezes are heard. Abdomen: Soft,. Mild left lower abdominal tenderness, nondistended with bowel sounds. No peritoneal signs. No palpable organomegaly or masses. Extremities: Normal skin color and turgor. No cyanosis, rash, ulceration, clubbing, or edema. Radial and pedal pulses are 2/4 bilaterally. Neurological: No focal deficits. Strength and sensation are grossly intact. - Labs CBC & Chem 7: 08/14/17 09:11 08/14/17 09:11 Labs: Abnormal Lab Results - Last 24 Hours (Table) 08/14/17 08/14/17 Range/Units 09:11 09:11 RBC 2.92 L (3.80-5.40) m/uL Hgb 9.5 L D (11.4-16.0) gm/dL Hct 30.2 L (34.0-46.0) % MCV 103.5 H D (80.0-100.0) fL RDW 24.0 H (11.5-15.5) % BUN 24 H (7-17) mg/dL Glucose 165 H (74-99) mg/dL Assessment and Plan (1) Colitis Narrative/Plan: Suspect ischemic colitis with improvement of symptoms. Current Visit: Yes Status: Acute Code(s): K52.9 - NONINFECTIVE GASTROENTERITIS AND COLITIS, UNSPECIFIED SNOMED Code(s): 53720634 (2) Acute blood loss anemia Current Visit: Yes Status: Acute Code(s): D62 - ACUTE POSTHEMORRHAGIC ANEMIA SNOMED Code(s): 738294133 (3) GI bleed Narrative/Plan: Lower GI bleed secondary to suspected ischemic colitis Current Visit: Yes Status: Acute Code(s): K92.2 - GASTROINTESTINAL HEMORRHAGE, UNSPECIFIED SNOMED Code(s): 74966624 Plan: 1. Full liquid diet and advance as tolerated. Supportive measures. 2. Inpatient endoscopic exams not planned at this time. Follow-up in office 7- 10 days after discharge. Assessment and plan of care discussed with Dr. Dhillon
[2017-08-15 10:06] VITALS: BP 143/75; PULSE 83; RESP 18
--- NOTE | 2017-08-16 06:25 | DS ---
DISCHARGE SUMMARY DATE OF ADMISSION: 08/13/2017 DATE OF DISCHARGE: 08/15/2017 FINAL DIAGNOSES: 1. Acute colitis, likely ischemic. 2. Acute severe blood loss anemia from lower gastrointestinal bleed. 3. Hypothyroidism. 4. Primary osteoarthritis especially of the knees. 5. Chronic urinary stress incontinence. HOSPITAL COURSE: This patient presented with abdominal pain and rectal bleeding. CT scan was suggestive of colitis. The patient did drop her hemoglobin down to 6.6, was transfused 2 units of blood. Hemoglobin at the time of discharge was up to 9.5. Overall doing much better. ON EXAM: ABDOMEN: Soft, nontender. LUNGS: Slightly decreased breath sounds. Care was discussed on the day of discharge with [place]. The patient will possibly have an outpatient colonoscopy. Care was discussed with the patient. Discussion and discharge planning more than 35 minutes. DISCHARGE MEDICATIONS: 1. Synthroid 100 mcg p.o. daily. 2. Aleve 220 mg p.o. daily p.r.n. 3. Ceftin 500 mg p.o. b.i.d., 14 tablets. 4. Flagyl 500 mg p.o. t.i.d. 21 tablets. DIET: Soft, bland. Follow up with Dr. Sudhir Youssef on 08/21/2017. Follow up with Dr. Pedrito Dhillon in 10 days. CBC, BMP in 1 week. MMODL / IJN: [id number] /
== END 2017-08-15 15:55 | disposition home or self-care (01) | DRG 394 ==
LOC: EC 18:39 → 6ICU 19:40 → 6SEL 08-14 08:48 → 3SUR 08-15 00:41
PROVIDERS: ADMIT Hospitalist; ATTEND Hospitalist
PROC: 30233N1 Transfusion of Nonautologous Red Blood Cells into Peripheral Vein, Percutaneous Approach (ICD-10-PCS; principal; 2017-08-13)
DX: K55.9 Vascular disorder of intestine, unspecified (principal); D62 Acute posthemorrhagic anemia; E03.9 Hypothyroidism, unspecified; M19.91 Primary osteoarthritis, unspecified site; N39.3 Stress incontinence (female) (male); Z82.49 Family history of ischemic heart disease and other diseases of the circulatory system; Z98.82 Breast implant status; Z79.890 Hormone replacement therapy; Z79.899 Other long term (current) drug therapy; Z88.6 Allergy status to analgesic agent; Z88.1 Allergy status to other antibiotic agents; Z91.041 Radiographic dye allergy status; Z91.013 Allergy to seafood
CPT/HCPCS: 36415; 71046; 74018; 80048; 80053; 82550; 82553; 83605; 84484; 85025; 85610; 85730; 86850; 86900; 86901; 86920; 87045; 87046; 87324; 93005; 96360; 96361; 96374; 99285

== ENCOUNTER → 2018-06-13 | Outpatient (CLI) | payer MEDICARE, OTHER ==
--- NOTE | 2018-06-13 09:13 | US ---
EXAMINATION TYPE: US abdomen complete DATE OF EXAM: 06/13/2018 COMPARISON: NONE CLINICAL HISTORY: R74.0 Nonspecific elevation of levels of.... elevated lft's patient states 7,000 EXAM MEASUREMENTS: Liver Length: 17.6 cm Gallbladder Wall: 0.3 cm CBD: 0.4 cm Spleen: 11.4 cm Right Kidney: 8.3 x 4.0 x 3.0 cm Left Kidney: 8.6 x 4.0 x 4.8 cm Pancreas: wnl Liver: wnl Gallbladder: dependant sludge seen at fundal portion Evidence for sonographic Escobar's sign: no CBD: wnl Spleen: wnl Right Kidney: small in size Left Kidney: small in size Upper IVC: wnl Abd Aorta: wnl The liver is homogenous. The intrahepatic portion of the IVC and proximal abdominal aorta are within normal limits. There is no evidence of cholelithiasis. Common bile duct is unremarkable. The visu alized portions of the pancreas are homogenous. The spleen is unremarkable. Kidneys are symmetric a nd free of hydronephrosis. No renal lesions are seen. IMPRESSION: 1. Gallbladder sludge. 2. Atrophic changes of the kidneys.
== END | disposition home or self-care (01) ==
LOC: RADUSWWP 08:15
PROVIDERS: ATTEND Family Medicine
DX: N26.1 Atrophy of kidney (terminal) (principal); K82.8 Other specified diseases of gallbladder
CPT/HCPCS: 76700

== ENCOUNTER → 2019-02-21 | Outpatient (CLI) | payer MEDICARE, OTHER ==
[~2019-02-21] MED LIST: SODIUM CHLORIDE 0.9% 500 ML 500 ML in EMPTY BAG 1 BAG IV PRN
[2019-02-21 16:06] VITALS: BP 158/89; PULSE 99; RESP 18; TEMP 98.6
== END | disposition home or self-care (01) ==
LOC: PROCWHC3 12:38
PROVIDERS: ATTEND Internal Medicine Hematology & Oncology
DX: D64.89 Other specified anemias (principal)
CPT/HCPCS: 86900; 86901; 86850; 86920; 36430; P9016

== ENCOUNTER 2019-02-23 16:20 | Emergency (ER) | payer MEDICARE, OTHER ==
[2019-02-23] MEDS ORDERED: SODIUM CHLORIDE 0.9% 500 ML 500 ML IV ONE (17:17)
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
[2019-02-23 17:44] LABS: Anisocytosis Marked; HGB 9.3 gm/dL (11.4-16.0); Hypochromasia Slight; MCH 33.9 pg (25.0-35.0); MCHC 32.1 g/dL (31.0-37.0); MCV 105.7 fL (80.0-100.0); Macrocytosis Marked; Platelet Count 234 k/uL (150-450); Poikilocytosis Slight; RBC 2.74 m/uL (3.80-5.40); WBC 7.3 k/uL (3.8-10.6)
[2019-02-23 17:46] LABS: RDW 27.5 % (11.5-15.5)
[2019-02-23 17:48] LABS: Albumin 3.7 g/dL (3.5-5.0); Calcium 10.9 mg/dL (8.4-10.2); Potassium 4.3 mmol/L (3.5-5.1); Total Bilirubin 1.5 mg/dL (0.2-1.3); Total Protein 7.5 g/dL (6.3-8.2)
--- NOTE | 2019-02-23 17:48 | CT ---
EXAMINATION TYPE: CT brain wo con DATE OF EXAM: 02/23/2019 COMPARISON: 07/22/2014 HISTORY: ams CT DLP: 1079.4 mGycm Automated exposure control for dose reduction was used. FINDINGS: There is cerebral cortical atrophy. There is no mass effect nor midline shift. There is no sign of in tracranial hemorrhage. Calvarium is intact. IMPRESSION: CEREBRAL ATROPHY. NO ACUTE INTRACRANIAL ABNORMALITY. NO CHANGE COMPARED TO OLD EXAM. MILD CHRONIC SMA LL VESSEL ISCHEMIA.
--- NOTE | 2019-02-23 17:49 | XR ---
EXAMINATION TYPE: XR chest 1V portable DATE OF EXAM: 02/23/2019 COMPARISON: August 11, 2017 HISTORY: Altered mental status TECHNIQUE: Single frontal view of the chest is obtained. FINDINGS: There is no heart failure nor confluent pneumonic infiltrate. There are chest leads. Thora cic aorta is atheromatous. Costophrenic angles are clear. The bony thorax appears intact. IMPRESSION: No active cardiopulmonary disease. No change.
[2019-02-23 17:51] LABS: INR 1.2 (<1.2); Partial Thromboplastin Time 25.7 sec (22.0-30.0); Prothrombin Time 12.5 sec (9.0-12.0)
[2019-02-23 17:53] LABS: Eosinophils # (M) 0.22 k/uL (0-0.7); Large Platelets Present; Lymphocytes # (M) 1.31 k/uL (1.0-4.8); Monocytes # (M) 1.17 k/uL (0-1.0); Neutrophils % (M) 63 %; Nucleated Red Blood Cells 0 /100 WBC (0-0); Target Cells Present; Total Cells Counted 100
[2019-02-23] MEDS ORDERED: FOLIC ACID 1 MG TAB PO SCH (18:15)
[2019-02-23] MEDS ORDERED: THIAMINE 100 MG TAB PO SCH (18:15)
[2019-02-23 18:18] LABS: Appearance,Urine Clear (Clear); Bacteria,Urine Many /hpf; Bilirubin,Urine Negative (Negative); Blood,Urine Negative (Negative); Color,Urine Yellow; Glucose,Urine (UA) Negative (Negative); Ketones,Urine Negative (Negative); Leukocyte Esterase,Urine Negative (Negative); Mucus,Urine Rare /hpf; Nitrite,Urine Negative (Negative); PH, Urine 6.5 (5.0-8.0); Protein,Urine 1+ (Negative); Specific Gravity,Urine 1.011 (1.001-1.035); Squamous Epithelial Cell,Urine <1 /hpf (0-4); Urobilinogen,Urine <2.0 mg/dL (<2.0); WBC,Urine 6 /hpf (0-5)
[2019-02-23 18:28] LABS: Amphetamine Screen,Urine Not Detected (NotDetected); Barbiturate Screen,Urine Not Detected (NotDetected); Benzodiazepines Screen,Urine Not Detected (NotDetected); Cocaine Screen,Urine Not Detected (NotDetected); Methadone Screen, Urine Not Detected (NotDetected); Opiate Screen,Urine Not Detected (NotDetected); Oxycodone Screen, Urine Not Detected (NotDetected); Phencyclidine Screen,Urine Not Detected (NotDetected); Tricyclic Antidepressant,Urine Not Detected (NotDetected); Urn Cannabinoid Scrn Not Detected (NotDetected)
[2019-02-24 06:43] VITALS: PULSE 77; TEMP 98.3
[2019-02-24 11:54] VITALS: BP 145/76; RESP 18
== END 2019-02-24 12:06 | disposition other institution (70) ==
LOC: EC 16:20
DX: F60.0 Paranoid personality disorder (principal); E07.9 Disorder of thyroid, unspecified; D53.1 Other megaloblastic anemias, not elsewhere classified; Z96.649 Presence of unspecified artificial hip joint; Z79.890 Hormone replacement therapy; Z88.4 Allergy status to anesthetic agent; Z88.6 Allergy status to analgesic agent; Z88.1 Allergy status to other antibiotic agents; Z91.048 Other nonmedicinal substance allergy status; Z88.8 Allergy status to other drugs, medicaments and biological substances; Z88.5 Allergy status to narcotic agent; Z91.013 Allergy to seafood
CPT/HCPCS: 36415; 70450; 71045; 80053; 80306; 81001; 82075; 82550; 84484; 85025; 85610; 85730; 93005; 96360; 96361; 99285

== ENCOUNTER 2019-03-21 16:37 | Inpatient (IN) | payer MEDICARE, OTHER ==
[2019-03-21] MEDS ORDERED: SODIUM CHLORIDE 0.9% 500 ML 500 ML IV STA (17:14)
[2019-03-21] MEDS ORDERED: ONDANSETRON 4 MG/2 ML VIAL IVP STA (17:14)
--- NOTE | 2019-03-21 17:21 | ED ---
General Adult HPI - General Chief complaint: Abdominal Pain Stated complaint: Abd pain Time Seen by Provider: 03/21/19 16:45 Source: patient, RN notes reviewed Mode of arrival: EMS Limitations: no limitations - History of Present Illness Initial comments: This is an 88-year-old female who presents to the emergency department complaining of having epigastric abdominal pain since yesterday. Patient states she has some sort of liver condition but she does not know what it is. Patient denies any vomiting but states she is nauseated. Patient denies any diarrhea. Patient denies any chest pain palpitations difficulty breathing shortness of breath. Patient denies any headache patient denies numbness weakness. Patient denies any lightheadedness or dizziness. Patient also states I am not allowed to draw any blood or start an IV on her or do any x-rays until her son comes in the room and tells us what we can do. Patient states she doesn't want to be here. - Related Data Home Medications Medication Instructions Recorded Confirmed Levothyroxine Sodium [Synthroid] 100 mcg PO DAILY 08/11/17 03/21/19 Naproxen Sodium [Aleve] 220 mg PO DAILY PRN 08/13/17 03/21/19 Epoetin Fercho-Epbx [Retacrit] 10,000 units SQ Q7D 03/21/19 03/21/19 Allergies Allergy/AdvReac Type Severity Reaction Status Date / Time Anesthetics - Bianca Type- Allergy Itching Verified 03/21/19 17:08 Parabens [Anesthetics - Bianca Type] celecoxib [From Celebrex] Allergy Itching Verified 03/21/19 17:08 doxycycline Allergy Rash/Hives Verified 03/21/19 17:08 iodine Allergy Rash/Hives Verified 03/21/19 17:08 iron Allergy Itching Verified 03/21/19 17:08 losartan potassium Allergy Rash/Hives Verified 03/21/19 17:08 [From Hyzaar] meperidine HCl [From Demerol] Allergy Anaphylaxis Verified 03/21/19 17:08 metformin HCl Allergy Anaphylaxis Verified 03/21/19 17:08 [From Glucophage] Tetracyclines Allergy Rash/Hives Verified 03/21/19 17:08 Anesthetics - Amide Type AdvReac Rapid Verified 03/21/19 17:08 Heart Rate hydrochlorothiazide AdvReac Nausea & Verified 09/12/19 17:08 [From Hyzaar] Vomiting shellfish derived AdvReac Rash/Hives Verified 03/21/19 17:08 modex AdvReac Nausea & Uncoded 02/21/19 13:07 Vomiting Review of Systems ROS Statement: Those systems with pertinent positive or pertinent negative responses have been documented in the HPI. ROS Other: All systems not noted in ROS Statement are negative. Past Medical History Past Medical History: Thyroid Disorder Additional Past Medical History / Comment(s): anemia, abnormal liver enzymes History of Any Multi-Drug Resistant Organisms: None Reported Past Surgical History: Joint Replacement, Tonsillectomy Additional Past Surgical History / Comment(s): rectal prolapse repair, breast implants, vein stripping, hip replacement Past Anesthesia/Blood Transfusion Reactions: Previous Problems w/ Anesthesia Additional Past Anesthesia/Blood Transfusion Reaction / Comment(s): ALLERGIES TO SOME ANESTHETICS-SEE ALLERGY LIST Past Psychological History: No Psychological Hx Reported Smoking Status: Never smoker Past Alcohol Use History: None Reported Past Drug Use History: None Reported - Past Family History Father Family Medical History: Cancer Additional Family Medical History / Comment(s): STOMACH ULCERS AND CANCER Mother Family Medical History: Myocardial Infarction ([place]) Additional Family Medical History / Comment(s): SEVERAL [place] General Exam - General Exam Comments Initial Comments: GENERAL: Patient is well-developed and well-nourished. Patient is nontoxic and well- hydrated and is in no acute distress. ENT: Neck is soft and supple. No significant lymphadenopathy is noted. Oropharynx is clear. Moist mucous membranes. Neck has full range of motion without eliciting any pain. EYES: The sclera were anicteric and conjunctiva were pink and moist. Extraocular movements were intact and pupils were equal round and reactive to light. Eyelids were unremarkable. PULMONARY: Unlabored respirations. Good breath sounds bilaterally. No audible rales rhonchi or wheezing was noted. CARDIOVASCULAR: There is a regular rate and rhythm without any murmurs gallops or rubs. Femoral pulses are equal bilaterally ABDOMEN: Mild epigastric abdominal pain. There is no palpable pulsatile mass. SKIN: Skin is clear with no lesions or rashes and otherwise unremarkable. NEUROLOGIC: Patient is alert and oriented x3. Cranial nerves II through XII are grossly intact. Motor and sensory are also intact. Normal speech, volume and content. Symmetrical smile. MUSCULOSKELETAL: Normal extremities with adequate strength and full range of motion. No lower extremity swelling or edema. No calf tenderness. LYMPHATICS: No significant lymphadenopathy is noted PSYCHIATRIC: Normal psychiatric evaluation. Limitations: no limitations Course Vital Signs 03/21/19 03/21/19 03/21/19 16:45 17:54 18:00 Temperature 98.8 F Pulse Rate 96 89 87 Respiratory 16 17 16 Rate Blood Pressure 170/83 168/88 O2 Sat by Pulse 96 100 100 Oximetry Medical Decision Making - Medical Decision Making Patient finally allowed us to draw blood and start an IV after her son get on the phone and told her to let us. Patient's hemoglobin was 7.1 but she did not want a rectal exam. I spoke with Dr. Jo he agreed to admit the patient I admitted the patient I wrote admitting orders. - Lab Data Result diagrams: 03/21/19 17:49 03/21/19 17:49 Lab Results 03/21/19 03/21/19 03/21/19 Range/Units 17:49 17:49 17:49 WBC 7.6 (3.8-10.6) k/uL RBC 2.10 L (3.80-5.40) m/uL Hgb 7.1 L D (11.4-16.0) gm/dL Hct 22.2 L (34.0-46.0) % MCV 105.9 H (80.0-100.0) fL MCH 33.8 (25.0-35.0) pg MCHC 31.9 (31.0-37.0) g/dL RDW 27.2 H (11.5-15.5) % Plt Count 274 (150-450) k/uL Neutrophils % (Manual) 53 % Band Neutrophils % 3 % Lymphocytes % (Manual) 29 % Monocytes % (Manual) 13 % Eosinophils % (Manual) 2 % Neutrophils # (Manual) 4.20 (1.3-7.7) k/uL Lymphocytes # (Manual) 2.20 (1.0-4.8) k/uL Monocytes # (Manual) 0.99 (0-1.0) k/uL Eosinophils # (Manual) 0.15 (0-0.7) k/uL Nucleated RBCs 0 (0-0) /100 WBC Manual Slide Review Performed Reactive Lymphocytes Present Hypochromasia Slight Anisocytosis Marked Macrocytosis Marked A PT 11.8 (9.0-12.0) sec INR 1.1 (<1.2) APTT 24.4 (22.0-30.0) sec Sodium 137 (137-145) mmol/L Potassium 4.9 (3.5-5.1) mmol/L Chloride 102 (98-107) mmol/L Carbon Dioxide 25 (22-30) mmol/L Anion Gap 10 mmol/L BUN 16 (7-17) mg/dL Creatinine 0.72 (0.52-1.04) mg/dL Est GFR (CKD-EPI)AfAm 89 (>60 ml/min/1.73 sqM) Est GFR (CKD-EPI)NonAf 77 (>60 ml/min/1.73 sqM) Glucose 107 H (74-99) mg/dL Calcium 9.6 (8.4-10.2) mg/dL Total Bilirubin 1.3 (0.2-1.3) mg/dL AST 133 H (14-36) U/L ALT 65 H (9-52) U/L Alkaline Phosphatase 82 (38-126) U/L Ammonia (<30) umol/L Total Protein 7.8 (6.3-8.2) g/dL Albumin 3.6 (3.5-5.0) g/dL Amylase 51 (30-110) U/L Lipase 77 (23-300) U/L 03/21/19 Range/Units 17:49 WBC (3.8-10.6) k/uL RBC (3.80-5.40) m/uL Hgb (11.4-16.0) gm/dL Hct (34.0-46.0) % MCV (80.0-100.0) fL MCH (25.0-35.0) pg MCHC (31.0-37.0) g/dL RDW (11.5-15.5) % Plt Count (150-450) k/uL Neutrophils % (Manual) % Band Neutrophils % % Lymphocytes % (Manual) % Monocytes % (Manual) % Eosinophils % (Manual) % Neutrophils # (Manual) (1.3-7.7) k/uL Lymphocytes # (Manual) (1.0-4.8) k/uL Monocytes # (Manual) (0-1.0) k/uL Eosinophils # (Manual) (0-0.7) k/uL Nucleated RBCs (0-0) /100 WBC Manual Slide Review Reactive Lymphocytes Hypochromasia Anisocytosis Macrocytosis PT (9.0-12.0) sec INR (<1.2) APTT (22.0-30.0) sec Sodium (137-145) mmol/L Potassium (3.5-5.1) mmol/L Chloride (98-107) mmol/L Carbon Dioxide (22-30) mmol/L Anion Gap mmol/L BUN (7-17) mg/dL Creatinine (0.52-1.04) mg/dL Est GFR (CKD-EPI)AfAm (>60 ml/min/1.73 sqM) Est GFR (CKD-EPI)NonAf (>60 ml/min/1.73 sqM) Glucose (74-99) mg/dL Calcium (8.4-10.2) mg/dL Total Bilirubin (0.2-1.3) mg/dL AST (14-36) U/L ALT (9-52) U/L Alkaline Phosphatase (38-126) U/L Ammonia <9 (<30) umol/L Total Protein (6.3-8.2) g/dL Albumin (3.5-5.0) g/dL Amylase (30-110) U/L Lipase (23-300) U/L Disposition Clinical Impression: Anemia, Epigastric abdominal pain Disposition: ADMITTED IP TO THIS HOSP Referrals: Chuck Velasco DO [Primary Care Provider] - 1-2 days Time of Disposition: 19:15
[2019-03-21 18:08] LABS: Anisocytosis Marked; HCT 22.2 % (34.0-46.0); Hypochromasia Slight; MCH 33.8 pg (25.0-35.0); MCHC 31.9 g/dL (31.0-37.0); MCV 105.9 fL (80.0-100.0); Macrocytosis Marked; Mean Platelet Volume 9.5; Platelet Count 274 k/uL (150-450); WBC 7.6 k/uL (3.8-10.6)
[2019-03-21 18:16] LABS: INR 1.1 (<1.2); Partial Thromboplastin Time 24.4 sec (22.0-30.0); Prothrombin Time 11.8 sec (9.0-12.0)
[2019-03-21 18:18] LABS: Albumin 3.6 g/dL (3.5-5.0); Calcium 9.6 mg/dL (8.4-10.2); Potassium 4.9 mmol/L (3.5-5.1); Total Bilirubin 1.3 mg/dL (0.2-1.3); Total Protein 7.8 g/dL (6.3-8.2)
[2019-03-21 18:24] LABS: HGB 7.1 gm/dL (11.4-16.0)
[2019-03-21 18:25] LABS: RDW 27.2 % (11.5-15.5)
[2019-03-21 18:59] LABS: Band Neutrophils % 3 %; Eosinophils # (M) 0.15 k/uL (0-0.7); Monocytes # (M) 0.99 k/uL (0-1.0); Neutrophils % (M) 53 %; Nucleated Red Blood Cells 0 /100 WBC (0-0); Total Cells Counted 100
[2019-03-21 19:00] LABS: Reactive Lymphocytes Present
[2019-03-21] MEDS ORDERED: PANTOPRAZOLE 40 MG/10 ML VIAL IVP STA (19:13)
[2019-03-21] MEDS ORDERED: SODIUM CHLORIDE 0.9% 1,000 ML IV ONE (19:15)
[2019-03-22 08:53] LABS: Anisocytosis Marked; HCT 21.5 % (34.0-46.0); Hypochromasia Moderate; MCH 34.1 pg (25.0-35.0); MCHC 31.7 g/dL (31.0-37.0); MCV 107.7 fL (80.0-100.0); Macrocytosis Marked; Mean Platelet Volume 9.2; Platelet Count 208 k/uL (150-450); WBC 5.4 k/uL (3.8-10.6)
[2019-03-22 09:07] LABS: HGB 6.8 gm/dL (11.4-16.0); RDW 26.3 % (11.5-15.5)
[2019-03-22 10:49] LABS: Eosinophils # (M) 0.43 k/uL (0-0.7); Lymphocytes # (M) 1.89 k/uL (1.0-4.8); Monocytes # (M) 1.03 k/uL (0-1.0); Neutrophils % (M) 38 %; Nucleated Red Blood Cells 0 /100 WBC (0-0); Poikilocytosis (M) Present; Target Cells Present; Total Cells Counted 100
[2019-03-22 10:50] LABS: Tear Drop Cells Present
--- NOTE | 2019-03-22 13:59 | P.HPIM ---
History of Present Illness 88-year-old female with a significant psychiatric issues came in with the complaints of hardness in the epigastric area appeared to complain of epigastric abdominal pain although she denied to me any epigastric abdominal burning sen jorgeon was admitted for possible GI bleed although patient denied any obvious hematemesis, melena hematochezia. Patient is anemic patient previous hemoglobin about a month ago was around the 8 now around 6. 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 Patient does have elevated MCV from mild dysplastic syndrome I ordered B12 and folate levels which I will discontinue her ferritin levels were high during her last hospitalization. Patient does have dementia but baseline is around alert oriented 2-3 patient presently denied any dizziness tiredness lightheadedness. Patient today's hemoglobin is around 6.8 borderline because of his and wouldn't transfuse 1 unit of blood. Patient although admits that she will have burning sensation in the epigastric area if she doesn't eat itches may be related to duodenitis. Patient is quite weak will need physical therapy and occupational therapy evaluation lives by herself Review of Systems REVIEW OF SYSTEMS: CONSTITUTIONAL: No fever, no malaise, no fatigue. HEENT: No recent visual problems or hearing problems. Denied any sore throat. CARDIOVASCULAR: No chest pain, orthopnea, PND, no palpitations, no syncope. PULMONARY: No shortness of breath, no cough, no hemoptysis. GASTROINTESTINAL: As mentioned in HPI NEUROLOGICAL: No headaches, no weakness, no numbness. HEMATOLOGICAL: Denies any bleeding or petechiae. GENITOURINARY: Denies any burning micturition, frequency, or urgency. MUSCULOSKELETAL/RHEUMATOLOGICAL: Denies any joint pain, swelling, or any muscle pain. ENDOCRINE: Denies any polyuria or polydipsia. The rest of the 14-point review of systems is negative. Past Medical History Past Medical History: GI Bleed, Osteoarthritis (OA), Syncope, Thyroid Disorder Additional Past Medical History / Comment(s): anemia, MDS History of Any Multi-Drug Resistant Organisms: None Reported Past Surgical History: Joint Replacement, Tonsillectomy Additional Past Surgical History / Comment(s): rectal prolapse repair, breast implants, vein stripping, hip replacement Past Anesthesia/Blood Transfusion Reactions: Previous Problems w/ Anesthesia Additional Past Anesthesia/Blood Transfusion Reaction / Comment(s): ALLERGIES TO SOME ANESTHETICS-SEE ALLERGY LIST Past Psychological History: No Psychological Hx Reported Smoking Status: Never smoker Past Alcohol Use History: None Reported Past Drug Use History: None Reported - Past Family History Father Family Medical History: Cancer Additional Family Medical History / Comment(s): STOMACH ULCERS AND CANCER Mother Family Medical History: Myocardial Infarction ([place]) Additional Family Medical History / Comment(s): SEVERAL [place] Medications and Allergies Home Medications Medication Instructions Recorded Confirmed Type Levothyroxine Sodium [Synthroid] 100 mcg PO DAILY 08/11/17 03/21/19 History Naproxen Sodium [Aleve] 220 mg PO DAILY PRN 08/13/17 03/21/19 History Epoetin Fercho-Epbx [Retacrit] 10,000 units SQ Q7D 03/21/19 03/21/19 History Allergies Allergy/AdvReac Type Severity Reaction Status Date / Time Anesthetics - Bianca Type- Allergy Itching Verified 03/21/19 17:08 Parabens [Anesthetics - Bianca Type] celecoxib [From Celebrex] Allergy Itching Verified 03/21/19 17:08 doxycycline Allergy Rash/Hives Verified 03/21/19 17:08 iodine Allergy Rash/Hives Verified 03/21/19 17:08 iron Allergy Itching Verified 03/21/19 17:08 losartan potassium Allergy Rash/Hives Verified 03/21/19 17:08 [From Hyzaar] meperidine HCl [From Demerol] Allergy Anaphylaxis Verified 03/21/19 17:08 metformin HCl Allergy Anaphylaxis Verified 03/21/19 17:08 [From Glucophage] Tetracyclines Allergy Rash/Hives Verified 03/21/19 17:08 Anesthetics - Amide Type AdvReac Rapid Verified 03/21/19 17:08 Heart Rate hydrochlorothiazide AdvReac Nausea & Verified 03/21/19 17:08 [From Hyzaar] Vomiting shellfish derived AdvReac Rash/Hives Verified 03/21/19 17:08 modex AdvReac Nausea & Uncoded 02/21/19 13:07 Vomiting Physical Exam Vitals: Vital Signs Temp Pulse Pulse Resp BP BP Pulse Ox 03/22/19 12:39 98 F 107 H 16 117/60 95 03/22/19 04:39 97.8 F 82 16 133/60 94 L 03/21/19 23:00 18 03/21/19 21:49 98 F 57 L 18 171/67 97 03/21/19 20:36 98.2 F 85 18 150/78 98 03/21/19 19:38 98.2 F 86 20 153/59 100 03/21/19 18:00 87 16 168/88 100 03/21/19 17:54 89 17 100 03/21/19 16:45 98.8 F 96 16 170/83 96 Intake and Output 03/21/19 03/22/19 03/22/19 22:59 06:59 14:59 Other: Voiding Method Toilet # Voids 1 3 Weight 58.967 kg PHYSICAL EXAMINATION: GENERAL: The patient is alert and oriented x2-3, not in any acute distress. Well developed, well nourished. HEENT: Pupils are round and equally reacting to light. EOMI. No scleral icterus. No conjunctival pallor. Normocephalic, atraumatic. No pharyngeal erythema. No thyromegaly. CARDIOVASCULAR: S1 and S2 present. No murmurs, rubs, or gallops. PULMONARY: Chest is clear to auscultation, no wheezing or crackles. ABDOMEN: Soft, nontender, nondistended, normoactive bowel sounds. No palpable organomegaly. MUSCULOSKELETAL: No joint swelling or deformity. EXTREMITIES: No cyanosis, clubbing, or pedal edema. NEUROLOGICAL: Gross neurological examination did not reveal any focal deficits. SKIN: No rashes. Results CBC & Chem 7: 03/22/19 08:20 03/21/19 17:49 Labs: Abnormal Lab Results - Last 24 Hours (Table) 03/21/19 03/21/19 03/22/19 Range/Units 17:49 17:49 08:20 RBC 2.10 L 2.00 L (3.80-5.40) m/uL Hgb 7.1 L D 6.8 L* (11.4-16.0) gm/dL Hct 22.2 L 21.5 L (34.0-46.0) % MCV 105.9 H 107.7 H (80.0-100.0) fL RDW 27.2 H 26.3 H (11.5-15.5) % Monocytes # (Manual) 1.03 H (0-1.0) k/uL Macrocytosis Marked A Marked A Glucose 107 H (74-99) mg/dL AST 133 H (14-36) U/L ALT 65 H (9-52) U/L Thrombosis Risk Factor Assmnt - Choose All That Apply Any of the Below Risk Factors Present?: No Each Risk Factor Represents 3 Points: Age 75 years or older Other congenital or acquired thrombophilia - If yes, enter type in comment: No Thrombosis Risk Factor Assessment Total Risk Factor Score: 3 Thrombosis Risk Factor Assessment Level: Moderate Risk Assessment and Plan Plan: -Anemia: 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 Patient will be continued on Protonix for duodenitis. -Possible schizophrenia schizoaffective disorder: Patient is not on any antipsychotics at this time had multiple recent hospitalizations for her psyc hiatric issues. -Chronic and stable elevated liver enzymes -Tachycardia seconded to anemia patient received IV fluids patient does have crackles on exam I'll obtain a chest x-ray IV fluids were discontinued and patient will be given 1 unit of blood transfusion -History of dementia possibly vascular/dementia. -Generalized deconditioning will need physical therapy and outpatient therapy evaluation. Patient lives by herself. -DVT prophylaxis with subcutaneous heparin
--- NOTE | 2019-03-22 15:04 | XR ---
EXAMINATION TYPE: XR chest 1V DATE OF EXAM: 03/22/2019 COMPARISON: 02/23/2019 HISTORY: Abnormal lung sounds. Crackles. TECHNIQUE: Single frontal view of the chest is obtained. FINDINGS: There is new mild interstitial pulmonary edema in addition to chronic interstitial promine nce. Retrocardiac linear atelectasis is seen at the left lung base. Cardiomediastinal silhouette is s table and nonenlarged. Mild to moderate degenerative changes of the thoracic spine and diffuse osseou s demineralization. No focal consolidation, pleural effusion or pneumothorax. IMPRESSION: New diffuse mild interstitial pulmonary edema. Correlate for cardiogenic or noncardiogen ic fluid overload.
--- NOTE | 2019-03-22 15:19 | P.CONS ---
History of Present Illness - Reason for Consult Consult date: 03/22/19 - History of Present Illness Ms Barksdale is an 88 yr old WF, followed by Dr Posadas. She was initially referred due to elevated ferritin with concerns about iron disorders such as Hemochromatosis. She denied any prior liver disoders, no prior or current use of alcohol. She stated having anemia for years and having had blood transfusion (8 units) after Hip arthroplasty by Dr Wayne Escobar 2016. C/O fatigue, but able to ambulate and be independent. She is a lifetime non smoker, denied any family history of iron disorders. Review of prior CBC results over last few years revealed islolated Macrocytic anemia without changes in Leukocytes or Platlets series. 08/02/18: C/O fatigue and lack of stamina. 08/29/18: C/O fatigue. 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 But was not compliant with the same. She came in to the office in 02/25 with significant drop in hemoglobin and required a unit of blood. At that time calcium level was elevated. She underwent additional workup with serum protein electrophoresis, that showed no monoclonal protein. [place] and lambda were both elevated with overall mild increase in the ratio. Resumption of Procrit was recommended but it is not clear if the patient has started that yet. She was admitted this time with about a 3 day history of abdominal pain. In the ER she was noted to have a hemoglobin of 7.1. The patient has been intermittently confused and combative with generally poor recall. In the ER she had refused blood draws till she talk to her son, but ultimately agreed. She states that she had been constipated for several days, which is chronic for her. He states that she took multiple medications for bowel movement and subsequently developed bloating and cramping. She denied any blood in the stool, black stools, nausea vomiting or hematemesis. At the time of my examination abdominal pain was markedly improved. Review of Systems Constitutional: Reports fatigue, Reports weakness Eyes: denies blurred vision, denies pain Ears: deny: decreased hearing, ear discharge, earache, tinnitus Ears, nose, mouth and throat: Denies headache, Denies sore throat Cardiovascular: Reports decreased exercise tolerance Respiratory: Denies cough Gastrointestinal: Reports abdominal pain, Reports bloating, Reports constipation Genitourinary: Denies dysuria, Denies hematuria Menstruation: Reports postmenopausal Musculoskeletal: Reports muscle weakness Integumentary: Denies pruritus, Denies rash Neurological: Reports confusion, Reports memory loss, Reports weakness Psychiatric: Reports as per HPI, Reports anxiety, Reports irritability Endocrine: Reports fatigue Hematologic/Lymphatic: Reports as per HPI Past Medical History Past Medical History: GI Bleed, Osteoarthritis (OA), Syncope, Thyroid Disorder Additional Past Medical History / Comment(s): anemia, MDS History of Any Multi-Drug Resistant Organisms: None Reported Past Surgical History: Joint Replacement, Tonsillectomy Additional Past Surgical History / Comment(s): rectal prolapse repair, breast implants, vein stripping, hip replacement Past Anesthesia/Blood Transfusion Reactions: Previous Problems w/ Anesthesia Additional Past Anesthesia/Blood Transfusion Reaction / Comm: ALLERGIES TO SOME ANESTHETICS-SEE ALLERGY LIST Past Psychological History: No Psychological Hx Reported Smoking Status: Never smoker Past Alcohol Use History: None Reported Past Drug Use History: None Reported - Past Family History Father Family Medical History: Cancer Additional Family Medical History / Comment(s): STOMACH ULCERS AND CANCER Mother Family Medical History: Myocardial Infarction (DC) Additional Family Medical History / Comment(s): SEVERAL DC'S Medications and Allergies Home Medications Medication Instructions Recorded Confirmed Type Levothyroxine Sodium [Synthroid] 100 mcg PO DAILY 08/11/17 03/21/19 History Naproxen Sodium [Aleve] 220 mg PO DAILY PRN 08/13/17 03/21/19 History Epoetin Fercho-Epbx [Retacrit] 10,000 units SQ Q7D 03/21/19 03/21/19 History Allergies Allergy/AdvReac Type Severity Reaction Status Date / Time Anesthetics - Bianca Type- Allergy Itching Verified 03/21/19 17:08 Parabens [Anesthetics - Bianca Type] celecoxib [From Celebrex] Allergy Itching Verified 03/21/19 17:08 doxycycline Allergy Rash/Hives Verified 03/21/19 17:08 iodine Allergy Rash/Hives Verified 03/21/19 17:08 iron Allergy Itching Verified 03/21/19 17:08 losartan potassium Allergy Rash/Hives Verified 03/21/19 17:08 [From Hyzaar] meperidine HCl [From Demerol] Allergy Anaphylaxis Verified 03/21/19 17:08 metformin HCl Allergy Anaphylaxis Verified 03/21/19 17:08 [From Glucophage] Tetracyclines Allergy Rash/Hives Verified 03/21/19 17:08 Anesthetics - Amide Type AdvReac Rapid Verified 03/21/19 17:08 Heart Rate hydrochlorothiazide AdvReac Nausea & Verified 03/21/19 17:08 [From Hyzaar] Vomiting shellfish derived AdvReac Rash/Hives Verified 03/21/19 17:08 modex AdvReac Nausea & Uncoded 02/21/19 13:07 Vomiting Physical Exam Vitals: Vital Signs Temp Pulse Pulse Resp BP BP Pulse Ox 03/22/19 12:39 98 F 107 H 16 117/60 95 03/22/19 04:39 97.8 F 82 16 133/60 94 L 03/21/19 23:00 18 03/21/19 21:49 98 F 57 L 18 171/67 97 03/21/19 20:36 98.2 F 85 18 150/78 98 03/21/19 19:38 98.2 F 86 20 153/59 100 03/21/19 18:00 87 16 168/88 100 03/21/19 17:54 89 17 100 03/21/19 16:45 98.8 F 96 16 170/83 96 Intake and Output 03/21/19 03/22/19 03/22/19 22:59 06:59 14:59 Other: Voiding Method Toilet # Voids 1 3 0 Weight 58.967 kg - Constitutional General appearance: no acute distress - EENT Eyes: EOMI, PERRLA ENT: hearing grossly normal, normal oropharynx - Neck Neck: no lymphadenopathy Thyroid: bilateral: normal size - Respiratory Respiratory: bilateral: CTA - Cardiovascular Rhythm: regular Heart sounds: normal: S1, S2 - Gastrointestinal General gastrointestinal: normal bowel sounds, soft - Neurologic Neurologic: CNII-XII intact - Musculoskeletal Musculoskeletal: generalized weakness, strength equal bilaterally - Psychiatric The patient was oriented 3 but did appear to be confused about where various events. Recall also appeared to be diminished Psychiatric: A&O x's 3 Results CBC & Chem 7: 03/22/19 08:20 03/21/19 17:49 Labs: Abnormal Lab Results - Last 24 Hours (Table) 03/21/19 03/21/19 03/22/19 Range/Units 17:49 17:49 08:20 RBC 2.10 L 2.00 L (3.80-5.40) m/uL Hgb 7.1 L D 6.8 L* (11.4-16.0) gm/dL Hct 22.2 L 21.5 L (34.0-46.0) % MCV 105.9 H 107.7 H (80.0-100.0) fL RDW 27.2 H 26.3 H (11.5-15.5) % Monocytes # (Manual) 1.03 H (0-1.0) k/uL Macrocytosis Marked A Marked A Glucose 107 H (74-99) mg/dL AST 133 H (14-36) U/L ALT 65 H (9-52) U/L Assessment and Plan (1) Anemia Narrative/Plan: The patient has a long-standing history of anemia which several years ago was related to an episode of bleeding. However since then of ferritin has been uniformly highly and her anemia has been proven to be hypoproliferative Specifically MDS, on bone marrow done earlier this year. The patient has been prescribed Procrit but I do not believe has been on it regularly. Therefore the current drop in hemoglobin is likely related to her underlying marrow disease, with her baseline hemoglobin typically being in the 8 range. A component of acute blood loss cannot be totally ruled out, but labs done in the office a few days ago showed markedly elevated iron studies that were in the same range (ferritin greater than 7000) - Transfuse to keep hemoglobin greater than 7 - Will attempt to resume Procrit and continue that as an outpatient. Current Visit: Yes Status: Acute Code(s): D64.9 - ANEMIA, UNSPECIFIED SNOMED Code(s): 381734363 (2) Epigastric abdominal pain Narrative/Plan: The patient complains of abdominal pain as her presenting complaint. Based on her history it is possible that this could be due to constipation and subsequent effect of multiple laxatives that she took. At the time of my exam symptoms had significantly improved and my exam was overall benign It was discussed with the patient that she may need additional imaging and possibly GI consult. However I would defer to the admitting service for further evaluation in this regard Current Visit: Yes Status: Acute Code(s): R10.13 - EPIGASTRIC PAIN SNOMED Code(s): 62165511 Plan: Defer to the admitting service and other consultants for management of her other medical problems
[2019-03-22] MEDS: HEPARIN SODIUM,PORCINE 5,000 UNIT/ML 1 ML VIAL SQ SCH (20:02)
[2019-03-22] MEDS: QUEtiapine 25 MG TAB PO SCH (20:03)
[2019-03-23] MEDS: LEVOTHYROXINE 100 MCG TAB PO SCH ×2 (04:53→09:29)
[2019-03-23] MEDS ORDERED: PANTOPRAZOLE 40 MG/10 ML VIAL IVP SCH (09:00)
[2019-03-23] MEDS: HEPARIN SODIUM,PORCINE 5,000 UNIT/ML 1 ML VIAL SQ SCH ×2 (09:29→20:35)
[2019-03-23 11:14] LABS: Anisocytosis Marked; Hypochromasia Moderate; MCH 34.6 pg (25.0-35.0); Macrocytosis Marked; Platelet Count 218 k/uL (150-450); RBC 2.03 m/uL (3.80-5.40); WBC 5.1 k/uL (3.8-10.6)
[2019-03-23 11:15] LABS: MCV 108.1 fL (80.0-100.0); RDW 26.3 % (11.5-15.5)
[2019-03-23 11:17] LABS: Albumin 2.9 g/dL (3.5-5.0); Calcium 8.3 mg/dL (8.4-10.2); Potassium 4.4 mmol/L (3.5-5.1); Total Bilirubin 0.9 mg/dL (0.2-1.3); Total Protein 6.6 g/dL (6.3-8.2)
[2019-03-23] MEDS ORDERED: FUROSEMIDE 10 MG/ML 4 ML VIAL IV STA (13:28)
--- NOTE | 2019-03-23 13:30 | P.PN ---
Subjective His is being treated for gram gastritis or peptic ulcer disease and patient is anemic which is chronic no acute blood loss anemia. Patient does have my history of mild dysplastic syndrome patient received gone into PRBC transfusion yesterday. Patient will need a placement because of which patient will need to stay until Monday. Her abdominal pain improved, ferritin and B12 levels were reviewed Constitutional: Denied any fatigue denied any fever. Cardio vascular: denied any chest pain, palpitations Gastrointestinal denied any nausea vomiting Pulmonary: Denied any shortness of breath cough Neurologic denied any new focal deficits All inpatient medications were reviewed and appropriate changes in these medications as dictated in the interval history and assessment and plan. Objective - Vital Signs Vital signs: Vital Signs Temp 98.2 F 03/23/19 12:00 Pulse 85 03/23/19 12:00 Resp 15 03/23/19 12:00 BP 124/61 03/23/19 12:00 Pulse Ox 98 03/23/19 12:00 Intake & Output 03/22/19 03/23/19 03/23/19 18:59 06:59 18:59 Other: Voiding Method Toilet # Voids 0 4 - Exam PHYSICAL EXAMINATION: GENERAL: The patient is alert and oriented x3, not in any acute distress. Well developed, well nourished. HEENT: Pupils are round and equally reacting to light. EOMI. No scleral icterus. No conjunctival pallor. Normocephalic, atraumatic. No pharyngeal erythema. No thyromegaly. CARDIOVASCULAR: S1 and S2 present. No murmurs, rubs, or gallops. PULMONARY: Chest is clear to auscultation, no wheezing or crackles. ABDOMEN: Soft, nontender, nondistended, normoactive bowel sounds. No palpable organomegaly. MUSCULOSKELETAL: No joint swelling or deformity. EXTREMITIES: No cyanosis, clubbing, or pedal edema. NEUROLOGICAL: Gross neurological examination did not reveal any focal deficits. SKIN: No rashes. 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 Patient will be continued on Protonix for duodenitis. -Possible schizophrenia schizoaffective disorder: Patient is not on any antipsychotics at this time had multiple recent hospitalizations for her psychiatric issues. Patient will need placement -Chronic and stable elevated liver enzymes -Tachycardia resolved with the IV fluids and blood transfusion -Pulmonary edema we'll rule out congestive heart failure probably due to IV fluids and may be a competent of diastolic dysfunction with acute exacerbation of 10 echocardiogram will give a dose of Lasix -History of dementia possibly vascular/dementia. -Generalized deconditioning will need physical therapy and outpatient therapy evaluation. Patient lives by herself. -DVT prophylaxis with subcutaneous heparin
[2019-03-23] MEDS: QUEtiapine 25 MG TAB PO SCH (20:34)
[2019-03-24] MEDS: HEPARIN SODIUM,PORCINE 5,000 UNIT/ML 1 ML VIAL SQ SCH ×2 (08:25→20:50)
[2019-03-24] MEDS: PANTOPRAZOLE 40 MG TABLET PO SCH (08:25)
[2019-03-24] MEDS: LEVOTHYROXINE 100 MCG TAB PO SCH (08:25)
--- NOTE | 2019-03-24 11:49 | P.PN ---
Subjective Patient is being treated for gram gastritis or peptic ulcer disease and patient is anemic which is chronic no acute blood loss anemia. Patient does have myelo dysplastic syndrome patient received gone into PRBC transfusion yesterday. Patient will need a placement because of which patient will need to stay until Monday. Her abdominal pain improved, ferritin and B12 levels were reviewed Constitutional: Denied any fatigue denied any fever. Cardio vascular: denied any chest pain, palpitations Gastrointestinal denied any nausea vomiting Pulmonary: Denied any shortness of breath cough Neurologic denied any new focal deficits All inpatient medications were reviewed and appropriate changes in these medications as dictated in the interval history and assessment and plan. Objective - Vital Signs Vital signs: Vital Signs Temp 97.7 F 03/24/19 04:49 Pulse 96 03/24/19 04:49 Resp 18 03/24/19 04:49 BP 127/52 03/24/19 04:49 Pulse Ox 93 L 03/24/19 04:49 Intake & Output 03/23/19 03/24/19 03/24/19 18:59 06:59 18:59 Other: Voiding Method Toilet Toilet Toilet # Voids 5 5 - Exam PHYSICAL EXAMINATION: GENERAL: The patient is alert and oriented x3, not in any acute distress. Well developed, well nourished. HEENT: Pupils are round and equally reacting to light. EOMI. No scleral icterus. No conjunctival pallor. Normocephalic, atraumatic. No pharyngeal erythema. No thyromegaly. CARDIOVASCULAR: S1 and S2 present. No murmurs, rubs, or gallops. PULMONARY: Chest is clear to auscultation, no wheezing or crackles. ABDOMEN: Soft, nontender, nondistended, normoactive bowel sounds. No palpable organomegaly. MUSCULOSKELETAL: No joint swelling or deformity. EXTREMITIES: No cyanosis, clubbing, or pedal edema. NEUROLOGICAL: Gross neurological examination did not reveal any focal deficits. SKIN: No rashes. 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 Patient will be continued on Protonix for duodenitis. -Possible schizophrenia schizoaffective disorder: Patient is not on any antipsychotics at this time had multiple recent hospitalizations for her psychiatric issues. Patient will need placement -Chronic and stable elevated liver enzymes -Tachycardia resolved with the IV fluids and blood transfusion -Pulmonary edema we'll rule out congestive heart failure probably due to IV fluids and may be a competent of diastolic dysfunction with acute exacerbation was given a dose of Lasix yesterday. Echocardiac time is pending -History of dementia possibly vascular/dementia. -Generalized deconditioning will need physical therapy and outpatient therapy evaluation. Patient lives by herself. -DVT prophylaxis with subcutaneous heparin
[2019-03-24] MEDS: QUEtiapine 25 MG TAB PO SCH (20:51)
[2019-03-25] MEDS: LEVOTHYROXINE 100 MCG TAB PO SCH (05:11)
[2019-03-25] MEDS: HEPARIN SODIUM,PORCINE 5,000 UNIT/ML 1 ML VIAL SQ SCH ×2 (08:20→19:39)
[2019-03-25] MEDS: PANTOPRAZOLE 40 MG TABLET PO SCH (08:20)
--- NOTE | 2019-03-25 12:12 | ECHOF ---
Referral Reason: MEASUREMENTS -------- HEIGHT: 160.0 cm WEIGHT: 59.0 kg BP: 124/61 IVSd: 1.2 cm (0.6 - 1.1) LVIDd: 4.6 cm (3.9 - 5.3) LVPWd: 1.1 cm (0.6 - 1.1) IVSs: 1.5 cm LVIDs: 3.1 cm LVPWs: 1.5 cm IVSd: 1.0 cm (0.6 - 1.1) LVIDd: 4.0 cm (3.9 - 5.3) LVPWd: 1.0 cm (0.6 - 1.1) IVSs: 0.0 cm EDV(Teich): 69 ml MV EXCURSION: 9.111 mm (> 18.000) MV EF SLOPE: 23 mm/s (70 - 150) EPSS: 1.1 cm MV E Rashard: 1.31 m/s MV DecT: 212 ms MV A Rashard: 1.09 m/s MV E/A Ratio: 1.20 RAP: 5.00 mmHg RVSP: 59.96 mmHg FINDINGS -------- Sinus rhythm. This was a technically adequate study. LV size, wall thickness and systolic function are normal, with an EF greater than 55%. There is bor derline concentric left ventricular hypertrophy. There is normal global left ventricular contractil ity. The right ventricular wall thickness is normal measuring < 5mm. The left atrial size is normal. The right atrial size is normal. Interatrial and interventricular septum intact. There is mild aortic valve sclerosis. Moderate mitral annular calcification present. Mild mitral regurgitation is present. The tricuspid valve appears structurally normal. [id number] tricuspid regurgitation present. There is moderate pulmonary hypertension. The right ventricular systolic pressure, as measured by Doppler, is 59.96mmHg. There is no pulmonic regurgitation present. The aortic root, ascending aorta and aortic arch are normal. There is no pericardial effusion. CONCLUSIONS -------- 1. Sinus rhythm. 2. This was a technically adequate study. 3. LV size, wall thickness and systolic function are normal, with an EF greater than 55%. 4. There is borderline concentric left ventricular hypertrophy. 5. There is normal global left ventricular contractility. 6. There is mild aortic valve sclerosis. 7. Moderate mitral annular calcification present. 8. Mild mitral regurgitation is present. 9. The tricuspid valve appears structurally normal. 10. Elon-ih-ilsgjvyr tricuspid regurgitation present. 11. There is moderate pulmonary hypertension. 12. There is no pulmonic regurgitation present. 13. The aortic root, ascending aorta and aortic arch are normal. 14. There is no pericardial effusion. [employer]TER: Carlos Govea RDCS
--- NOTE | 2019-03-25 13:39 | P.PN ---
Subjective Progress Note Date: 03/25/19 Principal diagnosis: multifactorial anemia In f/u today pt does ot want me to ask her questions, I asked to if she was in pain and she said "NO". Objective - Vital Signs Vital signs: Vital Signs Temp 98.1 F 03/25/19 11:43 Pulse 72 03/25/19 11:43 Resp 16 03/25/19 11:43 BP 130/51 03/25/19 11:43 Pulse Ox 97 03/25/19 11:43 Intake & Output 03/24/19 03/25/19 03/25/19 18:59 06:59 18:59 Other: Voiding Method Toilet Toilet # Voids 4 4 # Bowel Movements 1 - Constitutional General appearance: Present: no acute distress, thin - EENT Eyes: Present: anicteric sclerae, EOMI - Respiratory Respiratory: bilateral: CTA (weak inspiratroy effort) - Cardiovascular Heart sounds: normal: S1, S2 - Peripheral edema leg Peripheral Edema: bilateral: None - Gastrointestinal General gastrointestinal: Present: normal bowel sounds, soft - Musculoskeletal Musculoskeletal: Present: generalized weakness, strength equal bilaterally - Labs CBC & Chem 7: 03/23/19 10:37 03/23/19 10:37 Assessment and Plan (1) Macrocytic anemia Current Visit: Yes Status: Chronic Priority: Medium Code(s): D53.9 - NUTRITIONAL ANEMIA, UNSPECIFIED SNOMED Code(s): 23826306 (2) MDS (myelodysplastic syndrome), low grade Current Visit: Yes Status: Chronic Priority: Medium Code(s): D46.20 - REFRACTORY ANEMIA WITH EXCESS OF BLASTS, UNSPECIFIED SNOMED Code(s): 906771490 Plan: Pt recently had f/u in the office (03/18/19) labs are stable from MDS standpoint. Pt has been on retacrit injections since Jul 2018, every other week schedule with home care nurse drawing CBC and giving injection (drug was scripted). Since pt living arrangements are going to change we will make referral from office to a Hem/Onc in [place] for them to follow with pt. Will contact son with information. Pt can get 1 20K unit procrit inpatient what will cover her for 2 weeks until she can get established with a new Hem/Onc. Hemochromatosis: Ferritin>6000, no iron supplementation. Not candidate for chelation therapy.
--- NOTE | 2019-03-25 16:40 | XR ---
EXAMINATION TYPE: XR abdomen 2V DATE OF EXAM: 03/25/2019 COMPARISON: August 11, 2017 HISTORY: Epigastric pain TECHNIQUE: Supine and upright FINDINGS: There is blunting of the costophrenic angles. There is no sign of intestinal obstruction or pneumoperitoneum. Fecal pattern is fairly normal. There is no evidence of a mass. There are no patho logic definite calcifications over the kidneys. IMPRESSION: Bilateral mild pleural effusions. No free air. Pleural fluid appears increased compared t o recent chest x-ray of 03/22/2019.
[2019-03-25] MEDS ORDERED: FUROSEMIDE 40 MG TAB PO STA (16:54)
[2019-03-25] MEDS: QUEtiapine 25 MG TAB PO SCH (19:39)
[2019-03-26] MEDS: LEVOTHYROXINE 100 MCG TAB PO SCH (05:49)
[2019-03-26 07:38] LABS: Anisocytosis Marked; HCT 20.8 % (34.0-46.0); Hypochromasia Slight; MCH 35.4 pg (25.0-35.0); MCHC 33.4 g/dL (31.0-37.0); MCV 106.1 fL (80.0-100.0); Macrocytosis Marked; Mean Platelet Volume 9.2; Platelet Count 211 k/uL (150-450); RBC 1.96 m/uL (3.80-5.40); WBC 5.3 k/uL (3.8-10.6)
[2019-03-26] MEDS: PANTOPRAZOLE 40 MG TABLET PO SCH (07:48)
[2019-03-26 07:51] LABS: Potassium 3.9 mmol/L (3.5-5.1)
[2019-03-26 08:14] LABS: RDW 26.7 % (11.5-15.5)
[2019-03-26 09:26] LABS: Eosinophils # (M) 0.32 k/uL (0-0.7); Lymphocytes # (M) 2.49 k/uL (1.0-4.8); Neutrophils % (M) 32 %; Nucleated Red Blood Cells 0 /100 WBC (0-0); Total Cells Counted 100
[2019-03-26 09:28] LABS: Polychromasia Present
[2019-03-26] MEDS ORDERED: DARBEPOETIN ALFA 200 MCG/0.4 ML SYRINGE SQ SCH (11:00)
[2019-03-26] MEDS: HEPARIN SODIUM,PORCINE 5,000 UNIT/ML 1 ML VIAL SQ SCH ×2 (11:25→21:45)
[2019-03-26] MEDS ORDERED: SODIUM CHLORIDE 0.9% 1,000 ML IV SCH (14:00)
--- NOTE | 2019-03-26 14:27 | P.PN ---
Subjective Progress Note Date: 03/26/19 Principal diagnosis: multifactorial anemia In follow-up patient is reluctant to answer questions, denying pain or need to go to the bathroom. Objective - Vital Signs Vital signs: Vital Signs Temp 98.1 F 03/26/19 05:00 Pulse 77 03/26/19 08:00 Resp 18 03/26/19 08:00 BP 130/66 03/26/19 05:00 Pulse Ox 96 03/26/19 05:00 Intake & Output 03/25/19 03/26/19 03/26/19 18:59 06:59 18:59 Intake Total 600 480 Balance 600 480 Intake: Oral 600 480 Other: Voiding Method Toilet Toilet Toilet # Voids 4 2 # Bowel Movements 0 - Exam Well-developed, adequately nourished, frail 88-year-old female laying in bed, no acute distress, alert, irritated and annoyed with questioning, radial pulse 1-2+, skin is warm and dry, trace swelling in the lower extremities - Labs CBC & Chem 7: 03/26/19 07:09 03/26/19 07:09 Labs: Abnormal Lab Results - Last 24 Hours (Table) 03/22/19 03/26/19 03/26/19 Range/Units 08:20 07:09 07:09 RBC 1.96 L (3.80-5.40) m/uL Hgb 7.0 L (11.4-16.0) gm/dL Hct 20.8 L (34.0-46.0) % MCV 106.1 H (80.0-100.0) fL MCH 35.4 H (25.0-35.0) pg RDW 26.7 H (11.5-15.5) % Macrocytosis Marked A Glucose 100 H (74-99) mg/dL Calcium 8.0 L (8.4-10.2) mg/dL RBC Folate 908 H (280 - 791) ng/mL Assessment and Plan (1) Macrocytic anemia Current Visit: Yes Status: Chronic Priority: Medium Code(s): D53.9 - NUTRITIONAL ANEMIA, UNSPECIFIED SNOMED Code(s): 18816643 (2) MDS (myelodysplastic syndrome), low grade Current Visit: Yes Status: Chronic Priority: Medium Code(s): D46.20 - REFRACTORY ANEMIA WITH EXCESS OF BLASTS, UNSPECIFIED SNOMED Code(s): 003339156 Plan: Last OV was 03/18/19, CBC stable from MDS standpoint. Retacrit started Jul 2018, every other week schedule with home care nurse. Office staff is working on referral. Will communicate information to patient's son. Formulary Aranesp given today Hemochromatosis: Ferritin>6000, no iron supplementation. Not candidate for chelation therapy.
[2019-03-26] MEDS: BARIUM SULFATE 450 ML ORAL.SUSP BOTTLE PO PRN ×2 (16:59→19:54)
--- NOTE | 2019-03-26 21:37 | CT ---
EXAMINATION TYPE: CT abdomen pelvis wo con DATE OF EXAM: 03/26/2019 COMPARISON: 08/13/2017 HISTORY: abdominal pain and distention CT DLP: 335.4 mGycm Automated exposure control for dose reduction was used. TECHNIQUE: Helical acquisition of images was performed from the lung bases through the pelvis. FINDINGS: There are bilateral breast implants. There is coronary artery calcification. There are mild bilateral pleural effusions. There is minimal infiltrate and atelectasis at the lung bases. There is moderate abdominal ascites. Liver shows no focal defect. Bile ducts are nondilated. There ar e small calcified splenic granulomata. There is no evidence of pancreatic mass. There are small multi ple calcified gallstones. Exam is limited by lack of contrast. There is large portal venous system. S tomach has normal size. There is no adrenal mass. There are multiple small renal calcifications up to 3 mm. There is no hydro nephrosis. Ureters are not dilated. Abdominal aorta is atheromatous. There is no retroperitoneal omega opathy. There is no sign of a bowel obstruction. There is metal artifact from left hip prosthesis. Bl adder distends smoothly. There is no evidence of a pelvic mass. There is no evidence of a bowel obstr uction. Appendix appears normal. There are a few air bubbles in the appendix. There are spondylotic changes in the lumbar spine. There is no compression fracture. There is a mild degenerative first-degree L4-5 spondylolisthesis. Bony pelvis is intact. There are multiple sigmoid d iverticula. There is no sign of diverticulitis. IMPRESSION: THERE ARE BILATERAL PLEURAL EFFUSIONS THAT ARE NEW COMPARED TO OLD EXAM. THERE IS MODERATE ABDOMINAL ASCITES FLUID THAT IS NEW COMPARED TO OLD EXAM. THERE IS CLEARING OF THE WALL THICKENING AND INFLAMMA TORY CHANGES OF THE LEFTcolon COMPARED TO OLD EXAM. NONOBSTRUCTING SMALL RENAL CALCULI. SMALL CALCIFIED GALLSTONES. LARGE PORTAL VENOUS SYSTEM SUGGESTIVE OF SOME DEGREE OF PORTAL VENOUS HYPERTENSION. Unchanged. Degenerative spondylolisthesis at L4-5 with some mild bony spinal stenosis.
[2019-03-26] MEDS: QUEtiapine 25 MG TAB PO SCH (21:45)
--- NOTE | 2019-03-26 23:44 | P.PN ---
Subjective Progress Note Date: 03/25/19 Principal diagnosis: Anemia Abdominal pain Patient is being treated for gram gastritis or peptic ulcer disease and patient is anemic which is chronic no acute blood loss anemia. Patient does have myelo dysplastic syndrome patient received gone into [facility] transfusion yesterday. Patient will need a placement because of which patient will need to stay until Monday. Her abdominal pain improved, ferritin and B12 levels were reviewed. 03/25/2019 Patient is still complaining of upper abdominal pain mainly in the left side. Patient says that her pain improves after eating food. No complaints of constipation. Abdominal x-ray showed new small to moderate bilateral pleural effusion. Patient was given oral Lasix. Oncology is following for anemia. Hemoglobin 7.0. B12 and folate level within normal limits. Patient does have myelodysplastic syndrome for which patient is getting Procrit shots. Constitutional: Denied any fatigue denied any fever. Cardio vascular: denied any chest pain, palpitations Gastrointestinal denied any nausea vomiting Pulmonary: Denied any shortness of breath cough Neurologic denied any new focal deficits All inpatient medications were reviewed and appropriate changes in these medications as dictated in the interval history and assessment and plan. Objective - Vital Signs Vital signs: Vital Signs Temp 97.9 F 03/25/19 21:00 Pulse 74 03/25/19 21:00 Resp 16 03/25/19 21:00 BP 128/60 03/25/19 21:00 Pulse Ox 97 03/25/19 21:00 Intake & Output 03/25/19 03/25/19 03/26/19 06:59 18:59 06:59 Intake Total 600 Balance 600 Intake: Oral 600 Other: Voiding Method Toilet # Voids 4 4 2 # Bowel Movements 0 - Exam PHYSICAL EXAMINATION: Patient is lying in the bed comfortably, no acute distress, awake alert and oriented.. HEENT: Normocephalic. Neck is supple. Pupils reactive. Nostrils clear. Oral cavity is moist. Ears reveal no drainage. Neck reveals no JVD, carotid bruits, or thyromegaly. CHEST EXAMINATION: Trachea is central. Symmetrical expansion. Lung ellis clear to auscultation and percussion. CARDIAC: Normal S1, S2 with no gallops. No murmurs ABDOMEN: Soft. Mild left upper quadrant abdominal tenderness. Bowel sounds normal. No organomegaly. No abdominal bruits. Extremities: reveal no edema. No clubbing or cyanosis Neurologically awake, alert, oriented x3 with well-coordinated movements. No focal deficits noted Skin: No rash or skin lesions. Psychiatric: Coperative. Nonsuicidal Musculoskeletal: No joint swelling or deformity. Normal range of motion. - Labs CBC & Chem 7: 03/26/19 07:09 03/26/19 07:09 Labs: Abnormal Lab Results - Last 24 Hours (Table) 03/22/19 Range/Units 08:20 RBC Folate 908 H (280 - 791) ng/mL Assessment and Plan Assessment: -Chronic Anemia: Due to myelo dysplastic syndrome I do not believe patient has acute blood loss anemia probably will not require any upper GI endoscopy. Patient will be continued on Protonix for duodenitis. Oncology is following. Patient is getting Procrit shots at home. - Small to moderate bilateral pleural effusion. Patient was given 1 dose of Lasix. -Possible schizophrenia schizoaffective disorder: Patient is not on any antipsychotics at this time had multiple recent hospitalizations for her psychiatric issues. Patient will need placement -Chronic and stable elevated liver enzymes -Tachycardia resolved with the IV fluids and blood transfusion -Pulmonary edema . Possible acute on chronic CHF with diastolic dysfunction. Ejection fraction 55%. Patient was given IV Lasix. Continue with Lasix at this time. - Moderate pulmonary hypertension. -History of dementia possibly vascular/dementia. -Generalized deconditioning will need physical therapy and outpatient therapy evaluation. Patient lives by herself. -DVT prophylaxis with subcutaneous heparin Time with Patient: Greater than 30
--- NOTE | 2019-03-26 23:49 | P.PN ---
Subjective Progress Note Date: 03/26/19 Principal diagnosis: Anemia Abdominal pain Patient is being treated for gram gastritis or peptic ulcer disease and patient is anemic which is chronic no acute blood loss anemia. Patient does have myelo dysplastic syndrome patient received gone into [facility] transfusion yesterday. Patient will need a placement because of which patient will need to stay until Monday. Her abdominal pain improved, ferritin and B12 levels were reviewed. 03/25/2019 Patient is still complaining of upper abdominal pain mainly in the left side. Patient says that her pain improves after eating food. No complaints of constipation. Abdominal x-ray showed new small to moderate bilateral pleural effusion. Patient was given oral Lasix. Oncology is following for anemia. Hemoglobin 7.0. B12 and folate level within normal limits. Patient does have myelodysplastic syndrome for which patient is getting Procrit shots. 03/26/2019 Patient is still complaining of left upper quadrant abdominal pain and epigastric pain with improvement of symptoms after eating. CT of abdomen pelvis was ordered showed bilateral small to moderate pleural effusions and resolving left colon wall thickness and telemetry changes. Patient will be continued on Lasix upon discharge. Otherwise hemoglobin is stable at 7.0. Patient is also having moderate ascites. Possible underlying CHF with underlying severe anemia. Will not start on statins due to elevated liver enzymes. Constitutional: Denied any fatigue denied any fever. Cardio vascular: denied any chest pain, palpitations Gastrointestinal denied any nausea vomiting Pulmonary: Denied any shortness of breath cough Neurologic denied any new focal deficits All inpatient medications were reviewed and appropriate changes in these medications as dictated in the interval history and assessment and plan. Objective - Vital Signs Vital signs: Vital Signs Temp 98.5 F 03/26/19 20:39 Pulse 86 03/26/19 20:39 Resp 18 03/26/19 20:39 BP 155/69 03/26/19 20:39 Pulse Ox 95 03/26/19 20:39 Intake & Output 03/26/19 03/26/19 03/27/19 06:59 18:59 06:59 Intake Total 600 1080 Balance 600 1080 Intake: Oral 600 1080 Other: Voiding Method Toilet Toilet # Voids 2 3 # Bowel Movements 0 - Exam PHYSICAL EXAMINATION: Patient is lying in the bed comfortably, no acute distress, awake alert and oriented.. HEENT: Normocephalic. Neck is supple. Pupils reactive. Nostrils clear. Oral cavity is moist. Ears reveal no drainage. Neck reveals no JVD, carotid bruits, or thyromegaly. CHEST EXAMINATION: Trachea is central. Symmetrical expansion. Lung ellis clear to auscultation and percussion. CARDIAC: Normal S1, S2 with no gallops. No murmurs ABDOMEN: Soft. Mild left upper quadrant abdominal tenderness. Mild distention. Bowel sounds normal. No organomegaly. No abdominal bruits. Extremities: reveal no edema. No clubbing or cyanosis Neurologically awake, alert, oriented x3 with well-coordinated movements. No focal deficits noted Skin: No rash or skin lesions. Psychiatric: Coperative. Nonsuicidal Musculoskeletal: No joint swelling or deformity. Normal range of motion. - Labs CBC & Chem 7: 03/26/19 07:09 03/26/19 07:09 Labs: Abnormal Lab Results - Last 24 Hours (Table) 03/26/19 03/26/19 Range/Units 07:09 07:09 RBC 1.96 L (3.80-5.40) m/uL Hgb 7.0 L (11.4-16.0) gm/dL Hct 20.8 L (34.0-46.0) % MCV 106.1 H (80.0-100.0) fL MCH 35.4 H (25.0-35.0) pg RDW 26.7 H (11.5-15.5) % Macrocytosis Marked A Glucose 100 H (74-99) mg/dL Calcium 8.0 L (8.4-10.2) mg/dL Assessment and Plan Assessment: -Chronic Anemia: Due to myelo dysplastic syndrome I do not believe patient has acute blood loss anemia probably will not require any upper GI endoscopy. Patient will be continued on Protonix for duodenitis. Oncology is following. Patient is getting Procrit shots at home. - Small to moderate bilateral pleural effusion. Patient was given 1 dose of Lasix. -Possible schizophrenia schizoaffective disorder: Patient is not on any antipsychotics at this time had multiple recent hospitalizations for her psychiatric issues. Patient will need placement -Chronic and stable elevated liver enzymes -Tachycardia resolved with the IV fluids and blood transfusion -Pulmonary edema . Possible acute on chronic CHF with diastolic dysfunction. Ejection fraction 55%. Patient was given IV Lasix. Continue with Lasix at this time. - Moderate pulmonary hypertension. -History of dementia possibly vascular/dementia. -Generalized deconditioning will need physical therapy and outpatient therapy evaluation. Patient lives by herself. -DVT prophylaxis with subcutaneous heparin Time with Patient: Greater than 30
[2019-03-27] MEDS: LEVOTHYROXINE 100 MCG TAB PO SCH (05:51)
[2019-03-27] MEDS: PANTOPRAZOLE 40 MG TABLET PO SCH (08:45)
[2019-03-27] MEDS: HEPARIN SODIUM,PORCINE 5,000 UNIT/ML 1 ML VIAL SQ SCH (08:45)
[2019-03-27] MEDS ORDERED: ASPIRIN 81 MG PO SCH (09:00)
[2019-03-27] MEDS ORDERED: FUROSEMIDE 20 MG TAB PO SCH (09:00)
[2019-03-27] MEDS ORDERED: FUROSEMIDE 40 MG TAB PO SCH (09:00)
[2019-03-27 13:06] VITALS: BP 125/65; PULSE 98; RESP 18; TEMP 99.1
--- NOTE | 2019-03-27 14:38 | P.DS ---
Providers Date of admission: 03/23/19 14:46 Expected date of discharge: 03/27/19 Attending physician: Amrit Jo Consults: 03/21/19 19:15 Consult Physician Urgent Consulting Provider: Corinne Robles Consult Reason/Comments: Anemia Do you want consulting provider notified?: Yes Primary care physician: Chuck [facility] Course: Discharge diagnosis -Chronic Anemia: Due to myelo dysplastic syndrome I do not believe patient has acute blood loss anemia probably will not require any upper GI endoscopy. Patient will be continued on Protonix for duodenitis. Oncology is following. Patient is getting Procrit shots at home. - Small to moderate bilateral pleural effusion. Patient was given 1 dose of IV Lasix. We will continue with oral Lasix. Likely anemia contributing to pleural effusion. -Possible schizophrenia schizoaffective disorder: Patient is not on any antipsychotics at this time had multiple recent hospitalizations for her psychiatric issues. Patient will need placement -Chronic and stable elevated liver enzymes -Tachycardia resolved with the IV fluids and blood transfusion -Pulmonary edema . Possible acute on chronic CHF with diastolic dysfunction. Ejection fraction 55%. Patient was given IV Lasix. Continue with Lasix at this time. Added aspirin. - Moderate pulmonary hypertension. -History of dementia possibly vascular/dementia. -Generalized deconditioning will need physical therapy and outpatient therapy evaluation. Patient lives by herself. -DVT prophylaxis with subcutaneous heparin Hospital course Patient was admitted to the hospital with complaints of upper abdominal pain and nausea. Patient is being treated for gram gastritis or peptic ulcer disease and patient is anemic which is chronic no acute blood loss anemia. Patient does have myelo dysplastic syndrome patient received gone into [facility] transfusion yesterday. Patient will need a placement. Her abdominal pain improved, ferritin and B12 levels were reviewed. Within normal limits. Patient was seen by oncology. CT of the abdominal pelvis was done showed small bilateral pleural effusion and mild ascites. Patient will be continued on oral Lasix. Echocard iogram showed normal ejection fraction 55%. Possible underlying diastole CHF and moderate pulmonary hypertension. 03/25/2019 Patient is still complaining of upper abdominal pain mainly in the left side. Patient says that her pain improves after eating food. No complaints of constipation. Abdominal x-ray showed new small to moderate bilateral pleural effusion. Patient was given oral Lasix. Oncology is following for anemia. Hemoglobin 7.0. B12 and folate level within normal limits. Patient does have myelodysplastic syndrome for which patient is getting Procrit shots. 03/26/2019 Patient is still complaining of left upper quadrant abdominal pain and epigastric pain with improvement of symptoms after eating. CT of abdomen pelvis was ordered showed bilateral small to moderate pleural effusions and resolving left colon wall thickness and telemetry changes. Patient will be continued on Lasix upon discharge. Otherwise hemoglobin is stable at 7.0. Patient is also having moderate ascites. Possible underlying CHF with underlying severe anemia. Will not start on statins due to elevated liver enzymes. 03/27/19 Patient says that her abdominal pain is better today. Still having some pain with deep palpation otherwise. Patient will be continued on oral Lasix. Otherwise hemoglobin level is 7.2 today. Patient is tolerating oral diet. Patient will be continued on PT OT and will need rehab/extended-care facility transfer. Patient has been afebrile. No nausea vomiting or diarrhea. Constipation resolved. No chest pain or shortness of breath. PHYSICAL EXAMINATION: Patient is lying in the bed comfortably, no acute distress, awake alert and oriented.. HEENT: Normocephalic. Neck is supple. Pupils reactive. Nostrils clear. Oral cavity is moist. Ears reveal no drainage. Neck reveals no JVD, carotid bruits, or thyromegaly. CHEST EXAMINATION: Trachea is central. Symmetrical expansion. Lung ellis clear to auscultation and percussion. CARDIAC: Normal S1, S2 with no gallops. No murmurs ABDOMEN: Soft. Mild left upper quadrant abdominal tenderness. Mild distention. Bowel sounds normal. No organomegaly. No abdominal bruits. Extremities: reveal no edema. No clubbing or cyanosis Neurologically awake, alert, oriented x3 with well-coordinated movements. No focal deficits noted Skin: No rash or skin lesions. Psychiatric: Coperative. Nonsuicidal Musculoskeletal: No joint swelling or deformity. Normal range of motion. Vital Signs 03/27/19 03/27/19 08:00 13:05 Temperature 99.1 F Pulse Rate [ 86 98 Pulse Oximetery ] Respiratory 16 18 Rate Blood Pressure 125/65 [Left Arm] O2 Sat by Pulse 97 Oximetry Total time taken greater than 35 minutes including 18 minutes for counseling and coordination of care. Patient Condition at Discharge: Fair Plan - Discharge Summary New Discharge Prescriptions: New Aspirin 81 mg PO DAILY chew Furosemide [Lasix] 20 mg PO DAILY #30 tab Pantoprazole [Protonix] 40 mg PO DAILY #30 tablet. QUEtiapine [SEROquel] 25 mg PO HS #30 tab Continue Levothyroxine Sodium [Synthroid] 100 mcg PO DAILY Epoetin Fercho-Epbx [Retacrit] 10,000 units SQ Q7D Discontinued Naproxen Sodium [Aleve] 220 mg PO DAILY PRN PRN Reason: Pain Discharge Medication List Levothyroxine Sodium [Synthroid] 100 mcg PO DAILY 08/11/17 [History] Epoetin Fercho-Epbx [Retacrit] 10,000 units SQ Q7D 03/21/19 [History] Aspirin 81 mg PO DAILY chew 03/27/19 [Rx] Furosemide [Lasix] 20 mg PO DAILY #30 tab 03/27/19 [Rx] Pantoprazole [Protonix] 40 mg PO DAILY #30 tablet. 03/27/19 [Rx] QUEtiapine [SEROquel] 25 mg PO HS #30 tab 03/27/19 [Rx] Follow up Appointment(s)/Referral(s): Chuck Velasco DO [Primary Care Provider] - 1-2 days Discharge Disposition: TRANSFER TO SNF/ECF
--- NOTE | 2019-03-27 16:11 | P.PN ---
Subjective Progress Note Date: 03/27/19 Principal diagnosis: multifactorial anemia In follow-up today patient has no physical complaints, no fever, nausea, difficulty breathing, need to go to the bathroom, hunger or pain. Objective - Vital Signs Vital signs: Vital Signs Temp 99.1 F 03/27/19 13:05 Pulse 98 03/27/19 13:05 Resp 18 03/27/19 13:05 BP 125/65 03/27/19 13:05 Pulse Ox 97 03/27/19 13:05 Intake & Output 03/26/19 03/27/19 03/27/19 18:59 06:59 18:59 Intake Total 1080 960 Balance 1080 960 Intake: Oral 1080 960 Other: Voiding Method Toilet Toilet Toilet # Voids 3 2 4 - Exam Well-developed, adequately nourished, frail 88-year-old female laying in bed, no acute distress, alert, radial pulse 1-2+, skin is warm and dry, trace swelling in the lower extremities, abdomen is soft and nontender. - Labs CBC & Chem 7: 03/26/19 07:09 03/26/19 07:09 Assessment and Plan (1) Macrocytic anemia Current Visit: Yes Status: Chronic Priority: Medium Code(s): D53.9 - NUTRITIONAL ANEMIA, UNSPECIFIED SNOMED Code(s): 23699381 (2) MDS (myelodysplastic syndrome), low grade Current Visit: Yes Status: Chronic Priority: Medium Code(s): D46.20 - REFRACTORY ANEMIA WITH EXCESS OF BLASTS, UNSPECIFIED SNOMED Code(s): 045692073 Plan: Last OV was 03/18/19, CBC stable from MDS standpoint. Retacrit started Jul 2018, every other week schedule with home care nurse. Office staff is still working on referral. Will communicate information to patient's son. 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
== END 2019-03-27 18:30 | DRG 391 ==
LOC: EC 16:37 → 3NMEDONC 19:15 → OBSVTOIN 03-23 14:46 → 3NMEDONC 03-25 16:50
PROVIDERS: ADMIT Internal Medicine; ATTEND Internal Medicine
DX: K29.80 Duodenitis without bleeding (principal); I50.33 Acute on chronic diastolic (congestive) heart failure; R18.8 Other ascites; I27.20 Pulmonary hypertension, unspecified; F25.9 Schizoaffective disorder, unspecified; D63.8 Anemia in other chronic diseases classified elsewhere; D53.9 Nutritional anemia, unspecified; F01.50 Vascular dementia, unspecified severity, without behavioral disturbance, psychotic disturbance, mood disturbance, and anxiety; D46.9 Myelodysplastic syndrome, unspecified; K59.00 Constipation, unspecified; M19.90 Unspecified osteoarthritis, unspecified site; R74.8 Abnormal levels of other serum enzymes; R00.0 Tachycardia, unspecified; Z79.890 Hormone replacement therapy; Z79.899 Other long term (current) drug therapy; Z88.5 Allergy status to narcotic agent; Z88.1 Allergy status to other antibiotic agents; Z91.041 Radiographic dye allergy status; Z88.8 Allergy status to other drugs, medicaments and biological substances; Z91.013 Allergy to seafood; Z96.649 Presence of unspecified artificial hip joint; Z98.82 Breast implant status; Z82.49 Family history of ischemic heart disease and other diseases of the circulatory system; Z80.0 Family history of malignant neoplasm of digestive organs
CPT/HCPCS: 36415; 71045; 74019; 74176; 80048; 80053; 82140; 82150; 82607; 82728; 82746; 82747; 83690; 83921; 85025; 85027; 85610; 85730; 93306; 94760; 96361; 96374; 96375; 99285